=== PATIENT | male | born 1935 | race Caucasian/White ===

== ENCOUNTER → 2017-08-17 | Outpatient (CLI) | payer MEDICARE | LOC: SLP 20:37 | PROVIDERS: ATTEND Internal Medicine Cardiovascular Disease | DX: G47.10 Hypersomnia, unspecified (principal) | CPT/HCPCS: 95810 ==

== ENCOUNTER → 2017-09-08 | Outpatient (CLI) | payer MEDICARE | END | disposition home or self-care (01) | LOC: SLP 10:00 | PROVIDERS: ATTEND Internal Medicine Cardiovascular Disease | DX: G47.33 Obstructive sleep apnea (adult) (pediatric) (principal); G47.00 Insomnia, unspecified | CPT/HCPCS: 95811 ==

== ENCOUNTER 2018-06-18 12:46 | Emergency (ER) | payer MEDICARE ==
[2018-06-18] MEDS ORDERED: TETANUS/DIPHTHERIA TOXOID [ADULT] 0.5 ML VIAL IM ONE (13:47)
[2018-06-18 13:48] LABS: BASOPHILS % (AUTO) 0.8 % (0.0-5.0); EOSINOPHILS % (AUTO) 2.1 % (0.0-8.0); HEMATOCRIT 37.6 % (42-54); LYMPHOCYTES % (AUTO) 22.9 % (21.0-51.0); MEAN CORPUSCULAR HEMOGLOBIN 28.3 pg (27.0-33.0); MEAN CORPUSCULAR HGB CONC 33.2 g/dL (32.0-36.0); MEAN CORPUSCULAR VOLUME 85.2 fL (79-99); MONOCYTES % (AUTO) 7.3 % (3.0-13.0); NEUTROPHILS % (AUTO) 66.9 % (40.0-77.0); PLATELET COUNT (AUTO) 304 K/uL (130-400); RED BLOOD CELL COUNT(AUTO) 4.41 MIL/uL (4.50-6.20); RED CELL DISTRIBUTION WIDTH 12.9 % (11.0-15.5); WHITE BLOOD COUNT (AUTO) 7.3 K/uL (4.8-10.8)
[2018-06-18 13:58] LABS: POTASSIUM 3.9 mmol/L (3.5-5.1)
[2018-06-18 14:01] LABS: INR 0.99 (0.85-1.15); PARTIAL THROMBOPLASTIN TIME 27.5 SEC (26.3-35.5); PROTHROMBIN TIME 10.4 SEC (9.6-11.6)
[2018-06-18 14:04] LABS: ALBUMIN 3.2 g/dL (3.5-5.0); BILIRUBIN,TOTAL 0.8 mg/dL (0.2-1.0); TOTAL PROTEIN, SERUM 6.9 g/dL (6.0-8.3)
== END 2018-06-18 15:37 | disposition home or self-care (01) ==
LOC: EDH 12:46
DX: S05.12XA Contusion of eyeball and orbital tissues, left eye, initial encounter (principal); S40.012A Contusion of left shoulder, initial encounter; S60.512A Abrasion of left hand, initial encounter; I10 Essential (primary) hypertension; E11.9 Type 2 diabetes mellitus without complications; E78.5 Hyperlipidemia, unspecified; Z95.1 Presence of aortocoronary bypass graft; Z72.0 Tobacco use; Z88.1 Allergy status to other antibiotic agents; Z88.8 Allergy status to other drugs, medicaments and biological substances; W18.39XA Other fall on same level, initial encounter; Y93.01 Activity, walking, marching and hiking; Y92.89 Other specified places as the place of occurrence of the external cause; Y99.8 Other external cause status
CPT/HCPCS: 36415; 70450; 70480; 71045; 72125; 73030; 73130; 80053; 85025; 85610; 85730; 90471; 90714

== ENCOUNTER 2019-03-17 08:40 | Emergency (ER) | payer MEDICARE ==
[2019-03-17] MEDS ORDERED: IOHEXOL-350 75 ML VIAL IV ONE (08:55)
[2019-03-17 09:00] LABS: BASOPHILS % (AUTO) 1.1 % (0.0-5.0); EOSINOPHILS % (AUTO) 1.9 % (0.0-8.0); HEMATOCRIT 41.8 % (42-54); LYMPHOCYTES % (AUTO) 35.5 % (21.0-51.0); MEAN CORPUSCULAR HEMOGLOBIN 28.5 pg (27.0-33.0); MEAN CORPUSCULAR HGB CONC 33.4 g/dL (32.0-36.0); MEAN CORPUSCULAR VOLUME 85.3 fL (79-99); MONOCYTES % (AUTO) 7.7 % (3.0-13.0); NEUTROPHILS % (AUTO) 53.8 % (40.0-77.0); NUCLEATED RED BLOOD CELLS 0.1 % (0.0-0.19); PLATELET COUNT (AUTO) 443 K/uL (130-400); RED CELL DISTRIBUTION WIDTH 12.8 % (11.0-15.5); WHITE BLOOD COUNT (AUTO) 8.6 K/uL (4.8-10.8)
[2019-03-17 09:09] LABS: CREATININE 1.4 mg/dL (0.5-1.5); POTASSIUM 4.4 mmol/L (3.5-5.1)
[2019-03-17 09:14] LABS: ALBUMIN 3.7 g/dL (3.5-5.0); BILIRUBIN,TOTAL 0.8 mg/dL (0.2-1.0); INR 1.04 (0.85-1.15); PARTIAL THROMBOPLASTIN TIME 32.6 SEC (26.3-35.5); PROTHROMBIN TIME 10.9 SEC (9.6-11.6); TOTAL PROTEIN, SERUM 7.7 g/dL (6.0-8.3)
[2019-03-17 10:10] LABS: APPEARANCE,URINE Clear (CLEAR); BILIRUBIN,URINE Negative (NEGATIVE); COLOR,URINE Yellow (YELLOW); GLUCOSE, URINE (UA) Negative (NEGATIVE); KETONES,URINE Negative (NEGATIVE); LEUKOCYTE ESTERASE ,URINE Negative (NEGATIVE); NITRATE,URINE Negative (NEGATIVE); OCCULT BLOOD,URINE Negative (NEGATIVE); PH,URINE 5.5 (5.0-8.0); PROTEIN,URINE Negative (NEGATIVE); UROBILINOGEN,URINE 0.2 mg/dL (0.2-1.0)
[2019-03-17] MEDS ORDERED: TRAMADOL HCL 50 MG TABLET ONE (10:26)
[2019-03-17] MEDS ORDERED: CYCLOBENZAPRINE HCL 10 MG TABLET ONE (10:26)
== END 2019-03-17 13:09 | disposition home or self-care (01) ==
LOC: EDH 08:40
DX: M54.2 Cervicalgia (principal); E11.9 Type 2 diabetes mellitus without complications; I10 Essential (primary) hypertension; I48.91 Unspecified atrial fibrillation; E78.5 Hyperlipidemia, unspecified; Z87.891 Personal history of nicotine dependence; Z88.1 Allergy status to other antibiotic agents; V49.49XA Driver injured in collision with other motor vehicles in traffic accident, initial encounter; Y93.89 Activity, other specified; Y92.89 Other specified places as the place of occurrence of the external cause; Y99.8 Other external cause status
CPT/HCPCS: 36415; 70450; 71045; 72125; 72131; 74177; 80053; 81003; 82150; 82550; 83690; 84484; 85025; 85610; 85730; 93005; 99285; Q9967

== ENCOUNTER → 2019-05-30 | Outpatient (CLI) | payer MEDICARE ==
[~2019-05-30] VITALS: Ht 190.5 cm; Wt 90.7 kg
[~2019-05-30] MED LIST: REGADENOSON 0.4 MG/5 ML PF SYG IVP SCH
== END | disposition home or self-care (01) ==
LOC: SHCH 08:06
PROVIDERS: ATTEND Internal Medicine Cardiovascular Disease
DX: R06.09 Other forms of dyspnea (principal); I47.2 Ventricular tachycardia
CPT/HCPCS: 78452; 93017; 96374; A9500 ×2; J2785

== ENCOUNTER 2020-05-23 05:47 | Day surgery (SDC) | payer MEDICARE ==
[2020-05-21 08:59] LABS: BASOPHILS % (AUTO) 1.2 % (0.0-5.0); EOSINOPHILS % (AUTO) 2.4 % (0.0-8.0); HEMATOCRIT 44.6 % (42-54); LYMPHOCYTES % (AUTO) 20.8 % (21.0-51.0); MEAN CORPUSCULAR HEMOGLOBIN 27.6 pg (27.0-33.0); MEAN CORPUSCULAR HGB CONC 32.1 g/dL (32.0-36.0); MEAN CORPUSCULAR VOLUME 86.1 fL (79-99); MONOCYTES % (AUTO) 6.3 % (3.0-13.0); NEUTROPHILS % (AUTO) 69.2 % (40.0-77.0); PLATELET COUNT (AUTO) 374 K/uL (130-400); RED BLOOD CELL COUNT(AUTO) 5.18 MIL/uL (4.50-6.20); RED CELL DISTRIBUTION WIDTH 12.2 % (11.0-15.5); WHITE BLOOD COUNT (AUTO) 7.8 K/uL (4.8-10.8)
[2020-05-21 09:15] LABS: CREATININE 1.5 mg/dL (0.5-1.5); POTASSIUM 4.7 mmol/L (3.5-5.1)
[2020-05-21 09:16] LABS: INR 0.98 (0.85-1.15); PARTIAL THROMBOPLASTIN TIME 27.6 SEC (26.3-35.5); PROTHROMBIN TIME 10.6 SEC (9.6-11.6)
[2020-05-22 09:37] VITALS: BP 143/77
--- NOTE | 2020-05-22 14:42 | NUR ---
[facility] NOTIFED OF CONSULT
[~2020-05-23] VITALS: Ht 190.5 cm; Wt 87.4 kg
[2020-05-23] VITALS (8 sets, daily range): BP systolic 95–128; BP diastolic 50–68
[~2020-05-23 05:47] MED LIST changes: +ATOR40TA69 PO; +CYAN500T65 PO; +DUTA0.5C18 PO; +FERR-82 PO; +LISI10TA7 PO; +METO200T49 PO; -REGADENOSON 0.4 MG/5 ML PF SYG IVP SCH; +RIVA20TA PO
[2020-05-23] MEDS ORDERED: SODIUM CHLORIDE 0.9% 1000ML 1,000 ML IV ONE (05:59)
[2020-05-23] MEDS ORDERED: BUPIVACAINE/PF 0.25% 30ML VIAL IJ ONE (07:19)
[2020-05-23] MEDS ORDERED: CEFAZOLIN SODIUM 1 GM VIAL ONE (07:19)
[2020-05-23] MEDS ORDERED: SODIUM BICARB 50MEQ 50ML VIAL 50 ML ONE (07:19)
[2020-05-23] MEDS ORDERED: MIDAZOLAM HCL 1 MG/ML 2ML VIAL ONE (07:19)
[2020-05-23] MEDS ORDERED: FENTANYL CITRATE PF 50 MCG/1 ML 2ML VIAL ONE (07:20)
[2020-05-23] MEDS ORDERED: LIDOCAINE HCL 1% MDV 50ML VIAL ONE (07:20)
== END 2020-05-23 10:35 | disposition home or self-care (01) ==
LOC: DAH 05:47
PROVIDERS: ATTEND Internal Medicine Cardiovascular Disease
DX: Z45.010 Encounter for checking and testing of cardiac pacemaker pulse generator [battery] (principal); I47.1 Supraventricular tachycardia; E11.9 Type 2 diabetes mellitus without complications; E78.5 Hyperlipidemia, unspecified; G47.33 Obstructive sleep apnea (adult) (pediatric); Z88.1 Allergy status to other antibiotic agents; Z88.8 Allergy status to other drugs, medicaments and biological substances; Z79.01 Long term (current) use of anticoagulants; Z79.899 Other long term (current) drug therapy
CPT/HCPCS: 33228; 36415; 80048; 85025; 85610; 85730; 93005; A4216; A4221; A4222; A4223 ×3; A4606; A4663; C1785; J0690; J2250; J3010; J3490 ×3; J7030; 99156; 99157

== ENCOUNTER 2021-05-09 19:09 | Emergency (ER) | payer MEDICARE ==
[~2021-05-09] VITALS: Ht 193 cm; Wt 88.5 kg
[~2021-05-09 19:09] MED LIST changes: -CYAN500T65 PO; +CYAN500T9 PO; -DUTA0.5C18 PO; +DUTA0.5C37 PO; +LISI10TA24 PO; -LISI10TA7 PO
[2021-05-09] MEDS ORDERED: DIPH,PERTUSS(ACELL),TET VAC/PF 0.5 ML VIAL IM ONE (19:30)
[2021-05-09] MEDS ORDERED: ACETAMINOPHEN 500 MG TABLET PO ONE (19:30)
[2021-05-09] MEDS ORDERED: LIDOCAINE 1%-EPI 1:100,000 20 ML VIAL IJ SCH (19:30)
[2021-05-09] MEDS ORDERED: TETANUS/DIPHTHERIA TOXOID [ADULT] 0.5 ML VIAL IM ONE (19:46)
[2021-05-09] MEDS ORDERED: LIDOCAINE HCL 1% 10 ML VIAL ONE (19:48)
[2021-05-09 21:21] VITALS: BP 141/54
[2021-05-09] MEDS ORDERED: ACET1TAB25 PO (21:21)
== END 2021-05-09 21:42 | disposition home or self-care (01) ==
LOC: EDH 19:09
DX: S01.81XA Laceration without foreign body of other part of head, initial encounter (principal); M54.2 Cervicalgia; I11.9 Hypertensive heart disease without heart failure; Z88.1 Allergy status to other antibiotic agents; Z79.01 Long term (current) use of anticoagulants; Z95.0 Presence of cardiac pacemaker; Z79.899 Other long term (current) drug therapy; X58.XXXA Exposure to other specified factors, initial encounter; Y93.89 Activity, other specified; Y92.89 Other specified places as the place of occurrence of the external cause; Y99.8 Other external cause status
CPT/HCPCS: 12013; 70450; 70486; 72125; 90471; 90715; 99285; J3490; 90714

== ENCOUNTER → 2022-10-20 | Outpatient (CLI) | payer MEDICARE ==
[~2022-10-20] MED LIST changes: +ACET-2079 PO
[2022-10-20 12:20] LABS: BASOPHILS % (AUTO) 1.3 % (0.0-5.0); EOSINOPHILS % (AUTO) 7.3 % (0.0-8.0); HEMATOCRIT 41.9 % (42-54); LYMPHOCYTES % (AUTO) 20.3 % (21.0-51.0); MEAN CORPUSCULAR HEMOGLOBIN 27.3 pg (27.0-33.0); MEAN CORPUSCULAR HGB CONC 31.7 g/dL (32.0-36.0); MONOCYTES % (AUTO) 8.8 % (3.0-13.0); PLATELET COUNT (AUTO) 358 K/uL (130-400); RED BLOOD CELL COUNT(AUTO) 4.87 MIL/uL (4.50-6.20); RED CELL DISTRIBUTION WIDTH 12.5 % (11.0-15.5); WHITE BLOOD COUNT (AUTO) 7.9 K/uL (4.8-10.8)
[2022-10-20 12:27] LABS: ALBUMIN 3.4 g/dL (3.5-5.0); CREATININE 1.4 mg/dL (0.5-1.5); POTASSIUM 4.4 mmol/L (3.5-5.1); TOTAL PROTEIN, SERUM 7.4 g/dL (6.0-8.3)
== END | disposition home or self-care (01) ==
LOC: LAB 10:02
PROVIDERS: ATTEND Internal Medicine Cardiovascular Disease
DX: I10 Essential (primary) hypertension (principal)
CPT/HCPCS: 36415; 80053; 80061; 85025

== ENCOUNTER → 2023-04-20 | Outpatient (CLI) | payer MEDICARE ==
[2023-04-20 12:15] LABS: BASOPHILS # (AUTO) 0.09 K/uL (0.00-0.20); BASOPHILS % (AUTO) 1.2 % (0.0-5.0); EOSINOPHILS # (AUTO) 0.24 K/uL (0.00-0.70); EOSINOPHILS % (AUTO) 3.1 % (0.0-8.0); HEMATOCRIT 41.9 % (42-54); IMMATURE GRANULOCYTE ABSOLUTE 0.02 K/uL (0-1); MEAN CORPUSCULAR HEMOGLOBIN 27.7 pg (27.0-33.0); MEAN CORPUSCULAR HGB CONC 31.7 g/dL (32.0-36.0); MEAN CORPUSCULAR VOLUME 87.3 fL (79-99); MONOCYTES # (AUTO) 0.5 K/uL (0.1-1.0); NEUTROPHILS # (AUTO) 4.8 K/uL (1.8-7.7); NEUTROPHILS % (AUTO) 62.4 % (40.0-77.0); PLATELET COUNT (AUTO) 384 K/uL (130-400); RED CELL DISTRIBUTION WIDTH 12.6 % (11.0-15.5); WHITE BLOOD COUNT (AUTO) 7.6 K/uL (4.8-10.8)
[2023-04-20 12:45] LABS: ALBUMIN 3.6 g/dL (3.5-5.0); BILIRUBIN,TOTAL 0.6 mg/dL (0.2-1.0); CREATININE 1.2 mg/dL (0.5-1.5); POTASSIUM 4.6 mmol/L (3.5-5.1); TOTAL PROTEIN, SERUM 7.6 g/dL (6.0-8.3)
== END | disposition home or self-care (01) ==
LOC: LAB 09:44
PROVIDERS: ATTEND Internal Medicine Cardiovascular Disease
DX: I10 Essential (primary) hypertension (principal); E78.2 Mixed hyperlipidemia
CPT/HCPCS: 36415; 80053; 80061; 85025

== ENCOUNTER → 2023-05-29 | Outpatient (CLI) | payer MEDICARE ==
[2023-05-29 11:33] LABS: BASOPHILS # (AUTO) 0.06 K/uL (0.00-0.20); BASOPHILS % (AUTO) 0.8 % (0.0-5.0); EOSINOPHILS # (AUTO) 0.16 K/uL (0.00-0.70); EOSINOPHILS % (AUTO) 2.1 % (0.0-8.0); HEMATOCRIT 40.8 % (42-54); IMMATURE GRANULOCYTE ABSOLUTE 0.03 K/uL (0-1); LYMPHOCYTES # (AUTO) 1.7 K/uL (1.0-4.8); MEAN CORPUSCULAR HEMOGLOBIN 28.5 pg (27.0-33.0); MEAN CORPUSCULAR HGB CONC 32.1 g/dL (32.0-36.0); MEAN CORPUSCULAR VOLUME 88.7 fL (79-99); MONOCYTES # (AUTO) 0.6 K/uL (0.1-1.0); MONOCYTES % (AUTO) 7.7 % (3.0-13.0); NEUTROPHILS # (AUTO) 5.2 K/uL (1.8-7.7); PLATELET COUNT (AUTO) 338 K/uL (130-400); RED CELL DISTRIBUTION WIDTH 12.7 % (11.0-15.5); WHITE BLOOD COUNT (AUTO) 7.7 K/uL (4.8-10.8)
[2023-05-29 11:48] LABS: ALBUMIN 3.4 g/dL (3.5-5.0); BILIRUBIN,TOTAL 0.6 mg/dL (0.2-1.0); CREATININE 1.2 mg/dL (0.5-1.5); POTASSIUM 4.7 mmol/L (3.5-5.1); TOTAL PROTEIN, SERUM 7.3 g/dL (6.0-8.3)
== END | disposition home or self-care (01) ==
LOC: LAB 09:42
PROVIDERS: ATTEND Internal Medicine Cardiovascular Disease
DX: I10 Essential (primary) hypertension (principal); E78.2 Mixed hyperlipidemia
CPT/HCPCS: 36415; 80053; 80061; 85025

== ENCOUNTER → 2024-02-12 | Outpatient (CLI) | payer MEDICARE ==
[~2024-02-12] MED LIST changes: +METO200T37 PO; -METO200T49 PO
[2024-02-12 15:17] LABS: BASOPHILS # (AUTO) 0.08 K/uL (0.00-0.20); BASOPHILS % (AUTO) 1.1 % (0.0-5.0); EOSINOPHILS # (AUTO) 0.35 K/uL (0.00-0.70); EOSINOPHILS % (AUTO) 4.7 % (0.0-8.0); HEMATOCRIT 42.4 % (42-54); IMMATURE GRANULOCYTE ABSOLUTE 0.02 K/uL (0-1); LYMPHOCYTES # (AUTO) 1.7 K/uL (1.0-4.8); LYMPHOCYTES % (AUTO) 23.5 % (21.0-51.0); MEAN CORPUSCULAR HEMOGLOBIN 28.4 pg (27.0-33.0); MEAN CORPUSCULAR HGB CONC 33.3 g/dL (32.0-36.0); MEAN CORPUSCULAR VOLUME 85.5 fL (79-99); MONOCYTES # (AUTO) 0.7 K/uL (0.1-1.0); MONOCYTES % (AUTO) 9.1 % (3.0-13.0); NEUTROPHILS # (AUTO) 4.5 K/uL (1.8-7.7); NEUTROPHILS % (AUTO) 61.3 % (40.0-77.0); PLATELET COUNT (AUTO) 338 K/uL (130-400); RED BLOOD CELL COUNT(AUTO) 4.96 MIL/uL (4.50-6.20); RED CELL DISTRIBUTION WIDTH 12.7 % (11.0-15.5); WHITE BLOOD COUNT (AUTO) 7.4 K/uL (4.8-10.8)
[2024-02-12 15:34] LABS: ALBUMIN 3.5 g/dL (3.5-5.0); BILIRUBIN,TOTAL 0.7 mg/dL (0.2-1.0); CREATININE 1.3 mg/dL (0.5-1.3); POTASSIUM 4.6 mmol/L (3.5-5.1); TOTAL PROTEIN, SERUM 7.4 g/dL (6.0-8.3)
== END | disposition home or self-care (01) ==
LOC: LAB 11:39
PROVIDERS: ATTEND Internal Medicine Cardiovascular Disease
DX: D68.69 Other thrombophilia (principal); I48.0 Paroxysmal atrial fibrillation; Z79.01 Long term (current) use of anticoagulants; Z79.899 Other long term (current) drug therapy
CPT/HCPCS: 36415; 80053; 80061; 85025

== ENCOUNTER → 2024-06-09 | Outpatient (CLI) | payer MEDICARE ==
[2024-06-09 12:28] LABS: BASOPHILS # (AUTO) 0.09 K/uL (0.00-0.20); BASOPHILS % (AUTO) 0.5 % (0.0-5.0); EOSINOPHILS # (AUTO) 0.24 K/uL (0.00-0.70); EOSINOPHILS % (AUTO) 1.4 % (0.0-8.0); HEMATOCRIT 46.1 % (42-54); IMMATURE GRANULOCYTE ABSOLUTE 0.05 K/uL (0-1); LYMPHOCYTES # (AUTO) 1.5 K/uL (1.0-4.8); LYMPHOCYTES % (AUTO) 9.1 % (21.0-51.0); MEAN CORPUSCULAR HEMOGLOBIN 28.4 pg (27.0-33.0); MEAN CORPUSCULAR HGB CONC 31.9 g/dL (32.0-36.0); MEAN CORPUSCULAR VOLUME 89.2 fL (79-99); MONOCYTES % (AUTO) 5.8 % (3.0-13.0); NEUTROPHILS # (AUTO) 13.9 K/uL (1.8-7.7); NEUTROPHILS % (AUTO) 82.9 % (40.0-77.0); PLATELET COUNT (AUTO) 361 K/uL (130-400); RED BLOOD CELL COUNT(AUTO) 5.17 MIL/uL (4.50-6.20); RED CELL DISTRIBUTION WIDTH 12.9 % (11.0-15.5); WHITE BLOOD COUNT (AUTO) 16.7 K/uL (4.8-10.8)
[2024-06-09 12:42] LABS: ALBUMIN 3.9 g/dL (3.5-5.0); BILIRUBIN,TOTAL 0.9 mg/dL (0.2-1.0); CREATININE 1.3 mg/dL (0.5-1.3); POTASSIUM 4.9 mmol/L (3.5-5.1); TOTAL PROTEIN, SERUM 8.3 g/dL (6.0-8.3)
== END | disposition home or self-care (01) ==
LOC: LAB 06-08 11:54
PROVIDERS: ATTEND Internal Medicine Cardiovascular Disease
DX: I48.0 Paroxysmal atrial fibrillation (principal); D68.69 Other thrombophilia; Z79.01 Long term (current) use of anticoagulants; Z79.899 Other long term (current) drug therapy
CPT/HCPCS: 36415; 80053; 80061; 85025

== ENCOUNTER 2024-07-25 16:55 | Inpatient (IN) | payer MEDICARE ==
[~2024-07-25] VITALS: Ht 193 cm; Wt 84.4 kg
[2024-07-25] MEDS: 0.9%NACL 1000ML 1,000 ML IV ONE (17:25)
[2024-07-25] MEDS: acetaMINOPHEN 325 MG TAB PO ONE (17:30)
[2024-07-25 17:36] LABS: BASOPHILS # (AUTO) 0.03 K/uL (0.00-0.20); BASOPHILS % (AUTO) 0.4 % (0.0-5.0); EOSINOPHILS # (AUTO) 0.03 K/uL (0.00-0.70); EOSINOPHILS % (AUTO) 0.4 % (0.0-8.0); HEMATOCRIT 42.5 % (42-54); IMMATURE GRANULOCYTE ABSOLUTE 0.03 K/uL (0-1); LYMPHOCYTES # (AUTO) 1.3 K/uL (1.0-4.8); MEAN CORPUSCULAR HEMOGLOBIN 28.3 pg (27.0-33.0); MEAN CORPUSCULAR HGB CONC 33.6 g/dL (32.0-36.0); MONOCYTES # (AUTO) 0.6 K/uL (0.1-1.0); NEUTROPHILS # (AUTO) 5.2 K/uL (1.8-7.7); NEUTROPHILS % (AUTO) 72.8 % (40.0-77.0); PLATELET COUNT (AUTO) 421 K/uL (130-400); RED BLOOD CELL COUNT(AUTO) 5.06 MIL/uL (4.50-6.20); RED CELL DISTRIBUTION WIDTH 12.4 % (11.0-15.5); WHITE BLOOD COUNT (AUTO) 7.1 K/uL (4.8-10.8)
[2024-07-25 17:43] LABS: INR 0.98 (0.85-1.15)
[2024-07-25 17:44] LABS: PARTIAL THROMBOPLASTIN TIME 30.9 SEC (26.3-35.5)
--- NOTE | 2024-07-25 17:45 | HMCIMG ---
PORTABLE CHEST RADIOGRAPH INDICATION: COUGH COMPARISON: 03/17/2019 FINDINGS: engine monitor leads overlie the field of view. Left sided dual chamber pacer and continuous leads remain in customary position. Heart size is normal. Mild calcific plaque is present along the aortic arch persaud. The pulmonary vascularity and elda appear normal. No abnormal pulmonary parenchymal opacity or consolidation identified. No significant pleural effusion noted. No pneumothorax detected. IMPRESSION: No radiographic evidence for any acute cardiopulmonary process.
[2024-07-25 17:54] LABS: CREATININE 1.4 mg/dL (0.5-1.3)
[2024-07-25 18:03] LABS: INFLUENZA TYPE A Negative For Type A (NEGATIVE); INFLUENZA TYPE B Negative For Type B (NEGATIVE)
[2024-07-25 18:04] LABS: APPEARANCE,URINE CLEAR (CLEAR); BILIRUBIN,URINE NEGATIVE (NEGATIVE); COLOR,URINE LIGHT-YELLOW (YELLOW); GLUCOSE, URINE (UA) NEGATIVE (NEGATIVE); KETONES,URINE NEGATIVE (NEGATIVE); LEUKOCYTE ESTERASE ,URINE NEGATIVE Leu/uL (NEGATIVE); NITRATE,URINE NEGATIVE (NEGATIVE); OCCULT BLOOD,URINE NEGATIVE (NEGATIVE); PROTEIN,URINE NEGATIVE (NEGATIVE); UROBILINOGEN,URINE 0.2 mg/dL (0.2-1.0)
[2024-07-25 18:05] LABS: ADD UA MICROSCOPIC NO
[2024-07-25 18:06] LABS: POTASSIUM 3.1 mmol/L (3.5-5.1)
[2024-07-25 18:06] LABS: COVID19 (SARS ANTIGEN RAPID) POSITIVE FOR SARS AG (NEGATIVE)
--- NOTE | 2024-07-25 18:13 | ERN ---
ED Note History of Present Illness Stated Complaint: WEAKNESS Chief Complaint: Weakness Time Seen by MD: 17:03 Time Seen by Midlevel: 17:03 Dictation: The patient is an 89-year-old male with a history of hypertension, pacemaker placement presents to the emergency department with complaints of weakness, shortness of breath, cough. Patient was sent here by Dr. Amaury Benson for a possible admission due to failed outpatient treatment. Per patient he was diagnosed with COVID two weeks ago and had just finished taking his treatment today but companies feeling weak and short of breath. Reports some chest pain with cough. Patient has poor historian. Hard of hearing Allergies: Coded Allergies: Erythromycin Base (Unverified Allergy, 11/05/12) Levofloxacin (Unverified Allergy, 11/05/12) Home Meds Active Scripts Acetaminophen with Codeine (Acetaminophen-Cod #3 Tablet) 1 Each Tablet, 1 EACH PO TID for pain, #15 TAB 0 Refills Prov:NICK DICK MD 05/09/21 Reported Medications Atorvastatin Calcium (LIPITOR) 40 Mg Tablet, 40 MG PO HS, TAB 05/22/20 Metoprolol Succinate (Metoprolol Succinate) 200 Mg Tab.er.24h, 20 MG PO DAILY, TAB 05/22/20 Lisinopril (Lisinopril) 10 Mg Tablet, 10 MG PO BID, TAB 05/22/20 Dutasteride (Dutasteride) 0.5 Mg Capsule, 0.5 MG PO DAILY, CAP 05/22/20 Ferrous Sulfate (Iron) 325 Mg Tablet, 325 MG PO HS, TAB 05/22/20 Cyanocobalamin (Vitamin B-12) 500 Mcg Tab, 500 MCG PO HS, TAB 05/22/20 Rivaroxaban (Xarelto) 20 Mg Tablet, 20 MG PO HS, TAB 05/22/20 Past Medical History Past Medical History: Heart Disease, Hypertension Surgical History: Other RN Note Reviewed/Agreed w/PFSH: Yes Review of System Dictation Constitutional: Negative for fever,chills, and weight loss Eyes: Negative for injury, pain,redness, and discharge ENT: Negative for injury,pain or swelling Cardiovascular: Negative for palpitations, and edema positive for chest pain Respiratory: Negative for and wheezing, positive for shortness of breath, cough Abdomen/GI: Negative for abdominal pain, nausea, vomiting, diarrhea, and constipation Back: Negative for injury and pain : Negative for injury, bleeding and discharge MS/Extremity: Negative for injury and deformity Skin: Negative for rash, and discoloration Neuro: Negative for headache, numbness, tingling, and seizure positive for weakness Psych: Negative for suicide ideation, homicidal ideation, and hallucinations Initial Vital Sign VS Vital Signs Date Time Temp Pulse Resp B/P (MAP) Pulse Ox O2 Delivery O2 Flow Rate FiO2 07/25/24 17:01 99.0 126 20 154/84 99 Room Air 0 07/25/24 17:30 21 Physical Exam Dictation Vital Signs reviewed General Appearance: Alert, oriented x 3, no acute distress, well developed, nourished. Head and Face: non-traumatic. Eyes: PERRL, pink conjunctivas, eyelid no trauma, anterior chamber with arcus senilis. Ears: Pinnas intact and no signs of trauma or erythema ear canals clear and no discharge TM no erythema Nose: No discharge, no bleeding. Oropharynx: Mouth normal, tongue pink. pharynx clear,no erythema, tonsils no exudates, no abscesses noted, mucous membrane moist Neck: Supple, non-tender, no thyromegaly, no masses, no JVD, no bruits Breast:Deferred Chest:No tenderness, no crepitus, no paradoxical movement, no retractions Lungs:Clear, well-ventilated, symmetric, no rales, no wheezing, no rhonchi, no stridor, good breath sounds bilaterally Heart: Regular rate, regular rhythm, no murmur, no gallops Vascular: no peripheral edema, Abdomen: Soft, positive bowel sounds, nondistended, no guarding, nontender, no rebound, no masses no hepatomegaly, no splenomegaly, no Pal's sign, no hernias. Rectal: Deferred Genital: Deferred Neurological: Normal speech, motor function intact, sensory function intact Musculoskeletal: Neck nontender, full range of motion, back nontender, full range of motion, Extremities: nontender, full range of motion Skin: Color pink, dry, no turgor, no rash, no lacerations, no abrasions, no contusions. Lymphatic: Deferred Results (Laboratory/Radiology) Laboratory/Radiology Laboratory Tests Test 07/25/24 17:23 07/25/24 17:26 07/25/24 17:56 1/27/25 19:56 White Blood Count 7.1 K/uL (4.8-10.8) Red Blood Count 5.06 MIL/uL (4.50-6.20) Hemoglobin 14.3 g/dL (14.0-18.0) Hematocrit 42.5 % (42-54) Mean Corpuscular Volume 84.0 fL (79-99) Mean Corpuscular Hemoglobin 28.3 pg (27.0-33.0) Mean Corpuscular Hemoglobin Concent 33.6 g/dL (32.0-36.0) Red Cell Distribution Width 12.4 % (11.0-15.5) Platelet Count 421 K/uL (130-400) H Mean Platelet Volume 8.6 fL (7.5-10.5) Immature Granulocyte % (Auto) 0.4 % (0-1) Neutrophils (%) (Auto) 72.8 % (40.0-77.0) Lymphocytes (%) (Auto) 18.0 % (21.0-51.0) L Monocytes (%) (Auto) 8.0 % (3.0-13.0) Eosinophils (%) (Auto) 0.4 % (0.0-8.0) Basophils (%) (Auto) 0.4 % (0.0-5.0) Neutrophils # (Auto) 5.2 K/uL (1.8-7.7) Lymphocytes # (Auto) 1.3 K/uL (1.0-4.8) Monocytes # (Auto) 0.6 K/uL (0.1-1.0) Eosinophils # (Auto) 0.03 K/uL (0.00-0.70) Basophils # (Auto) 0.03 K/uL (0.00-0.20) Absolute Immature Granulocyte (auto 0.03 K/uL (0-1) Nucleated Red Blood Cells 0.0 % (0.0-0.19) Prothrombin Time 11.0 SEC (9.6-11.6) Prothromb Time International Ratio 0.98 (0.85-1.15) Activated Partial Thromboplast Time 30.9 SEC (26.3-35.5) Sodium Level 131 mmol/L (136-145) L Potassium Level 3.1 mmol/L (3.5-5.1) L Chloride Level 95 mmol/L (101-111) L Carbon Dioxide Level 29 mmol/L (21-32) Blood Urea Nitrogen 12 mg/dL (7-18) Creatinine 1.4 mg/dL (0.5-1.3) H Glomerular Filtration Rate Calc 48 mL/min (>90) Random Glucose 107 mg/dL (70-105) H Lactic Acid Level 1.9 mmol/L (0.8-2.5) Total Calcium 9.1 mg/dL (8.5-10.1) Troponin I High Sensitivity 13 ng/L (4-75) 16 ng/L (4-75) B-Type Natriuretic Peptide 251 pg/mL (0-100) H Influenza Type A Antigen Negative For Type A Influenza Type B Antigen Negative For Type B SARS-CoV-2 Antigen (Rapid) POSITIVE FOR SARS AG Urine Color LIGHT-YELLOW (YELLOW) Urine Appearance CLEAR (CLEAR) Urine pH 6.0 (5.0-8.0) Urine Specific [place] 1.006 (1.001-1.031) Urine Protein NEGATIVE mg/dL (NEGATIVE) Urine Glucose (UA) NEGATIVE mg/dL (NEGATIVE) Urine Ketones NEGATIVE mg/dL (NEGATIVE) Urine Occult Blood NEGATIVE (NEGATIVE) Urine Nitrate NEGATIVE (NEGATIVE) Urine Bilirubin NEGATIVE mg/dL (NEGATIVE) Urine Urobilinogen 0.2 mg/dL (0.2-1.0) Urine Leukocyte Esterase NEGATIVE Cori/uL Test 07/26/24 07:08 07/26/24 12:21 White Blood Count 6.2 K/uL (4.8-10.8) Red Blood Count 4.46 MIL/uL (4.50-6.20) L Hemoglobin 12.6 g/dL (14.0-18.0) L Hematocrit 37.4 % (42-54) L Mean Corpuscular Volume 83.9 fL (79-99) Mean Corpuscular Hemoglobin 28.3 pg (27.0-33.0) Mean Corpuscular Hemoglobin Concent 33.7 g/dL (32.0-36.0) Red Cell Distribution Width 12.6 % (11.0-15.5) Platelet Count 362 K/uL (130-400) Mean Platelet Volume 8.6 fL (7.5-10.5) Immature Granulocyte % (Auto) 0.2 % (0-1) Neutrophils (%) (Auto) 91.0 % (40.0-77.0) H Lymphocytes (%) (Auto) 7.5 % (21.0-51.0) L Monocytes (%) (Auto) 1.3 % (3.0-13.0) L Eosinophils (%) (Auto) 0.0 % (0.0-8.0) Basophils (%) (Auto) 0.0 % (0.0-5.0) Neutrophils # (Auto) 5.7 K/uL (1.8-7.7) Lymphocytes # (Auto) 0.5 K/uL (1.0-4.8) L Monocytes # (Auto) 0.1 K/uL (0.1-1.0) Eosinophils # (Auto) 0.00 K/uL (0.00-0.70) Basophils # (Auto) 0.00 K/uL (0.00-0.20) Absolute Immature Granulocyte (auto 0.01 K/uL (0-1) Nucleated Red Blood Cells 0.0 % (0.0-0.19) White Cell Morphology Comment See comments D-Dimer Quantitative (PE/DVT) 491 ng/mL (0-500) Sodium Level 140 mmol/L (136-145) Potassium Level 3.9 mmol/L (3.5-5.1) Chloride Level 105 mmol/L (101-111) Carbon Dioxide Level 25 mmol/L (21-32) Blood Urea Nitrogen 13 mg/dL (7-18) Creatinine 1.2 mg/dL (0.5-1.3) Glomerular Filtration Rate Calc 58 mL/min (>90) Random Glucose 175 mg/dL (70-105) #H Total Calcium 8.6 mg/dL (8.5-10.1) Magnesium Level 1.60 mg/dL (1.80-2.40) L Total Bilirubin 0.6 mg/dL (0.2-1.0) Aspartate Amino Transf (AST/SGOT) 22 U/L (10-37) Alanine Aminotransferase (ALT/SGPT) 22 U/L (12-78) Alkaline Phosphatase 54 U/L (50-136) Troponin I High Sensitivity 13 ng/L (4-75) Total Protein 6.3 g/dL (6.0-8.3) Albumin 2.9 g/dL (3.5-5.0) L Blood Gas Specimen Type Arterial Arterial Blood pH 7.511 (7.350-7.450) Arterial Blood Partial Pressure CO2 24 mmHg (35-48) L Arterial Blood Partial Pressure O2 81.3 mmHg (83.0-108.0) L Arterial Blood HCO3 18.5 mmol/L (21.0-28.0) L Arterial Blood Oxygen Saturation 97.1 % (94.0-98.0) Arterial Blood Base Excess -2.4 mmol/L (-2.0-3.0) L Blood Gas Temperature 37.0 CELSIUS (35.5-37.0) Blood Gas Vent Mode RA (ROOM AIR) FiO2 21.0 % Blood Gas Specimen Comment RR,LILLIAN REASON: COUGH ORDERING PHYSICIAN: ALDO SANCHEZ MD PROCEDURE: CXR1VW - CHEST 1VW PORTABLE CHEST RADIOGRAPH INDICATION: COUGH COMPARISON: 03/17/2019 FINDINGS: cafeteria monitor leads overlie the field of view. Left sided dual chamber pacer and continuous leads remain in customary position. Heart size is normal. Mild calcific plaque is present along the aortic arch persaud. The pulmonary vascularity and elda appear normal. No abnormal pulmonary parenchymal opacity or consolidation identified. No significant pleural effusion noted. No pneumothorax detected. IMPRESSION: No radiographic evidence for any acute cardiopulmonary process. Labs Reviewed?: Yes EKG: (+) rhythm (Sinus tachycardia) EKG Comment: Date:07/25/2024 Time:1702 Ventricular rate: 102 LA interval:197 QRS duration:125 QT/QTc:386 EKG interpretation: Sinus tachycardia Reviewed by ED Attending no STEMI ED Course ED Course Orders Procedure Category Date Status Time 12 Lead Ekg Tracing- EKG 07/25/24 Complete Technical 17:05 Chest 1vw RAD 07/25/24 Resulted 17:05 Cbc With Differential LAB 07/25/24 Complete 17:05 Basic Metabolic Panel LAB 07/25/24 Complete 17:05 Urinalysis Profile LAB 07/25/24 Complete 17:05 Troponin I High LAB 07/25/24 Complete Sensitivity 17:05 Lactic Acid LAB 07/25/24 Complete 17:05 Blood Cult LAZ 07/25/24 In Process 17:05 Covid19 (Sars Antigen LAB 07/25/24 Complete Rapid) 17:17 Influenza Type A & B, LAB 07/25/24 Complete Rapid 17:17 0.9%Nacl 1000ml (Ns PHA 07/25/24 Complete 1000ml) 17:30 Pt And Ptt LAB 07/25/24 Complete 17:17 Acetaminophen 325 Tab PHA 07/25/24 Complete (Tylenol 325mg Tab 17:30 B-Type Natriuretic LAB 07/25/24 Complete Peptide 18:14 Potassium Bicarb/Cit PHA 07/25/24 Complete Ac 25meq (K-Lyte Ta 18:30 Aspirin 325mg Tab PHA 07/25/24 Complete (Aspirin 325mg Tab) 18:30 Dexamethasone 4mg/Ml PHA 07/25/24 Complete 1ml Vial (Dexametha 18:30 Ipratropium/Albuterol PHA 07/25/24 Complete Neb (Duoneb) 18:30 Admit Orders ADM 07/25/24 Transmitted 18:48 Edm Admit Bridge Order ADM 07/25/24 Transmitted 18:48 Vital Signs(Adult CPOE 07/25/24 Transmitted Hospitalist) 19:43 Daily Weights CPOE 07/25/24 Transmitted 19:43 I&O Q Shift CPOE 07/25/24 Transmitted 19:43 Acetaminophen 325 Tab PHA 07/25/24 In Process (Tylenol 325mg Tab 20:00 Acetaminophen 325 Tab PHA 07/25/24 In Process (Tylenol 325mg Tab 20:00 Ondansetron 4mg Inj PHA 07/25/24 In Process (Zofran 4mg Inj) 20:00 Nitroglycerin 0.4mg PHA 07/25/24 In Process Sl Tab (Nitrostat) 20:00 Guaifenesin-Dm PHA 07/25/24 In Process 200/20mg 10ml 20:00 Ipratropium/Albuterol PHA 07/25/24 In Process Neb (Duoneb) 22:00 Pulse Ox(Continuous) RT 07/25/24 Transmitted 19:43 Nurse To Enter Home CPOE 07/25/24 Transmitted Medication 19:43 Condition: CPOE 07/25/24 Transmitted 19:43 Telemetry Monitoring CPOE 07/25/24 Transmitted 19:43 Activity: Br W/Brp CPOE 07/25/24 Transmitted With Assist 19:43 Heart Healthy Diet DIET 07/26/24 Transmitted Breakfast Apply Scds CPOE 07/25/24 Transmitted 19:43 Famotidine 20mg Tab PHA 07/26/24 In Process (Pepcid 20mg Tab) 09:00 0.9%Nacl 1000ml (Ns PHA 07/25/24 In Process 1000ml) 20:00 Cbc With Differential LAB 07/26/24 Complete 04:00 Comprehensive LAB 07/26/24 Complete Metabolic Panel 04:00 Magnesium LAB 07/26/24 Complete 04:00 Dexamethasone 4mg/Ml PHA 07/25/24 Complete 1ml Vial (Dexametha 20:00 Aspirin 81mg Ec Tab PHA 07/26/24 In Process (Aspirin 81mg Ec Tab 09:00 Troponin I High LAB 07/25/24 Complete Sensitivity 19:43 Troponin I High LAB 07/26/24 Complete Sensitivity 03:43 Magnesium 2gm Premix PHA 07/25/24 In Process 50ml (Magnesium 2gm 20:00 Initiate Hypokalemia CPOE 07/25/24 Transmitted Po Half 19:50 Potassium Chloride PHA 07/25/24 In Process 10meq/100ml ([place] 20:00 Potassium Chl 10% PHA 07/25/24 In Process Elixir 20meq (Kcl 10% 20:00 Potassium Chloride PHA 07/25/24 In Process 20meq Er (K-Dur/Klor- 20:00 Notify Physician If CPOE 07/25/24 Transmitted There Is 19:50 Notify Md On The Next CPOE 07/25/24 Transmitted 19:50 Notify Md On The CPOE 07/25/24 Transmitted Next(Cont.) 19:50 Atorvastatin 40mg PHA 07/26/24 In Process (Lipitor 40mg) 21:00 Cyanocobalamin PHA 07/26/24 In Process (Vitamin B-12) 21:00 Home Medication (Home PHA 07/26/24 In Process Medication) 09:00 Ferrous Sulfate PHA 07/26/24 In Process (Ferrous Sulfate) 21:00 Hydralazine 20mg Inj PHA 07/25/24 In Process (Apresoline 20mg In 21:30 D-Dimer LAB 07/26/24 Complete 04:00 Admit Orders ADM 07/25/24 Transmitted 21:35 Arterial Blood Gas RT 07/26/24 Transmitted 11:26 Arterial Blood Gas LAB 07/26/24 Complete 12:21 Lisinopril 10mg PHA 07/26/24 In Process (Prinivil 10mg) 21:00 Rivaroxaban (Xarelto) PHA 07/26/24 In Process 21:00 Echo 2-D Complete ECHO 07/26/24 Taken 14:36 Metoprolol Succinate PHA 07/27/24 In Process (Toprol Xl) 09:00 Metoprolol Succinate PHA 07/26/24 Complete (Toprol Xl) 15:30 Telemetry Monitoring CPOE 07/26/24 Transmitted 17:00 Arterial Blood Gas RT 07/27/24 Verified 04:00 Cbc With Differential LAB 07/27/24 Verified 04:00 Comprehensive LAB 07/27/24 Verified Metabolic Panel 04:00 Current Medications Medications (Trade) Dose Ordered Sig/Chase Route PRN Reason Start Time Stop Time Status Last Admin Dose Admin Acetaminophen (TYLenol 325MG TAB) 650 mg ONCE ONCE PO 07/25/24 17:30 07/25/24 17:31 DC 07/25/24 17:30 Albuterol (DUOneb) 1 UDVIAL ONCE ONCE IH 07/25/24 18:30 07/25/24 18:33 DC 07/25/24 19:02 Aspirin (Aspirin 325mg Tab) 325 mg ONCE ONCE PO 07/25/24 18:30 07/25/24 18:33 DC 07/25/24 18:37 Dexamethasone Sodium Phosphate (dexaMETHasone 4MG/ML 1ML VIAL) 4 mg ONCE ONCE IV 07/25/24 18:30 07/25/24 18:33 DC 07/25/24 18:37 Potassium Bicarbonate (K-Lyte Tablet Eff 25 Meq Tablet.eff) 25 meq ONCE ONCE PO 07/25/24 18:30 07/25/24 18:33 DC 07/25/24 18:37 Sodium Chloride 1,000 ml @ 125 mls/hr ONCE ONCE IV 07/25/24 17:30 07/26/24 01:29 DC 07/25/24 17:25 Vital Signs Date Time Temp Pulse Resp B/P (MAP) Pulse Ox O2 Delivery O2 Flow Rate FiO2 07/26/24 15:25 112 14 132/56 97 Room Air* 0 21 07/26/24 14:45 120 20 07/26/24 13:04 53 16 132/56 98 Room Air* 0 07/26/24 11:53 103 16 162/70 97 Room Air* 0 21 07/26/24 10:03 120 20 07/26/24 07:54 98.1 98 16 129/67 100 Room Air* 0 21 07/26/24 07:09 88 20 N/A Room Air 21 07/26/24 07:08 88 20 07/26/24 06:21 98.1 60 18 138/64 99 Room Air* 0 07/26/24 04:26 98.4 58 18 148/60 98 Room Air* 0 07/26/24 01:57 60 18 07/26/24 01:57 60 20 N/A Room Air 21 07/25/24 21:43 52 20 N/A Room Air 21 07/25/24 21:43 52 20 07/25/24 21:17 98.2 62 20 151/68 99 Room Air* 0 07/25/24 19:02 50 20 07/25/24 17:30 97.9 69 18 172/100 100 Room Air* 0 07/25/24 17:01 99.0 126 20 154/84 99 Room Air 0 HEART Score Response (Comments) Value History: Low suspicion (0) 0 Age: > 65yrs (+2) 2 Risk Factors: 1-2 risk factors (+1) 1 Initial Troponin: Normal limit (0) 0 Total 3 Medical Decision Making MDM MDM: The patient is an 89-year-old male with a history of hypertension, pacemaker placement presents to the emergency department with complaints of weakness, shortness of breath, cough. Patient was sent here by Dr. Amaury Benson for a possible admission due to failed outpatient treatment. Per patient he was diagnosed with hCOVID two weeks ago and had just finished taking his treatment today but companies feeling weak and short of breath. Reports some chest pain with cough. Patient has poor historian. Hard of hearing CBC showed no leukocytosis, no anemia, chemistry showed hyponatremia, hypokalemia, hypochloremia, GFR of 48, negative troponin, urinalysis unremarkable, serology positive for COVID-19 infection. Patient will be admitted for further management. Differential diagnosis: Pneumonia, ACS, pneumothorax, electrolyte imbalance, dehydration Comorbidities: Hypertension, permanent pacemaker, complete heart block Tests considered and not ordered secondary to shared decision making include: none Previous outside records reviewed: none Risk of complication and/or morbidity or mortality of patient management: The patient meets criteria for admission. Need for emergency major/minor surgery: No There are no social concerns with this patient. I independently interpreted the tests I ordered (labs, urinalysis, etc.). I discussed the case with the hospitalist for admission. Namrata who accepts admission. I discussed the case with the following specialists: none. Historian: pateint. I independently interpreted imaging studies and EKGs that I ordered (US, CT, XR, EKG, etc.). External chart review: none. Medical management and examination interpretation discussions were had by me wit h other qualified healthcare professionals as indicated for the patient's care. DX & DISP Disposition: Inpatient Decision to Admit Date: Jul 25, 2024 Decision to Admit Time: 18:54 Departure Impression: Primary Impression: COVID-19 virus infection Additional Impressions: Weakness, Dehydration, Hyponatremia, Hypochloremia, Chest pain, Hypokalemia Condition: Stable Referrals: AMAURY BENSON MD (PCP) I have reviewed the case, and I agree with, Diagnosis and Plan I performed the substantive portion of the visit. I have reviewed and personally made and approve the management plan that is documented in the notes by myself or the MIN[facility]. I acknowledge full responsibility for the patient's man agement plan. MARIANA AIKEN Jul 25, 2024 18:13 ALDO SANCHEZ MD Jul 26, 2024 18:46
[2024-07-25] MEDS: dexaMETHasone SOD PHOSPHATE 4 MG/ML 1ML VIAL IV ONE (18:37)
[2024-07-25] MEDS: ASPIRIN 325MG TAB PO ONE (18:37)
[2024-07-25] MEDS: PoTASSium BIcarbonate/CIT AC 25 MEQ TABLET.EFF PO ONE (18:37)
--- NOTE | 2024-07-25 18:49 | HP ---
[facility] HISTORY AND PHYSICAL Date of Service: Jul 25, 2024 Time of Service: 18:49 PCP Kelley Rebolledo MD HISTORY OF PRESENT ILLNESS: This is an 89-year-old male with highly impaired hearing with past medical history of hypertension, cardiac pacemaker, diabetes and BPH presents to the ED for complaints of cough, shortness of breath and general weakness.Patient reports having symptoms for the past 2 weeks and was diagnosed with Covid and completed his treatment but no improvement and patient states he has chest pain which is triggered with persistent cough.Patient states he spits some thigh phlegm occasionally.Patient was sent to ER by his PCP due to failed outpatient treatment and for possible admission. Seen and examined patient in the ED ,awake ,alert and coherent.Patient continue to complain of chest pain which is reproducible in nature and describe pain as soreness located around his entire chest wall area. Patient denies fever, chills, sore throat, nausea, vomiting, diarrhea, abdominal pain and palpitation. Recent vital signs temperature 97.9 heart rate 50, respiration 20 blood pressure 172/100 saturation 100% on room air. Labs : Platelet count 421 otherwise CBC result is unremarkable . Sodium 131, potassium 3.1, chloride 95, creatinine 1.4 GFR 48, glucose 107 troponin 13 to 16 BNP 251. ECG result revealed sinus rhythm heart rate 96 prolonged CA interval left bundle branch block. Influenza a and B negative SARs COVID positive. Chest x-ray result is unremarkable. While in the ER patient received Tylenol 65 0 mg p.o., potassium replacement 25 mEq p.o., aspirin 325 mg p.o., dexamethasone 4 mg IV and albuterol neb treatment and patient was started on NS at 125 mL/hour we will admit patient for further medical management. REVIEW OF SYSTEMS CONSTITUTIONAL: Denies fevers, chills, or night sweats. No unintentional weight loss reported. NEUROLOGICAL: Denies headache, amaurosis fugax, motor weakness, sensory deficit, vertigo/spinning sensation, gait abnormalities, or tremors. ENT: No hearing loss, otalgia, otorrhea, rhinitis, rhinorrhea, hoarseness, or sore throat. CARDIOVASCULAR: Denies any exertional angina, dyspnea on exertion, orthopnea, paroxysmal nocturnal dyspnea, palpitations, life-threatening arrhythmias, claudication. PULMONARY: Complain of shortness of breaths and productive cough and pleuritic chest pain Denies hemoptysis, SLEEP: Denies morning headaches, daytime somnolence or napping. Denies difficulty falling asleep, staying asleep, waking from sleep. Denies knowledge of snoring. GASTROINTESTINAL: Denies any type of dysphagia to either liquids or solids. D enies nausea, vomiting, pyrosis, early satiety, abdominal pain, diarrhea, constipation, or changes in stool consistency or caliber. Denies coffee-ground emesis, hematemesis, hematochezia, or melanotic stools. GENITOURINARY: Denies frequency, urgency, nocturia, hematuria or incontinence (Storage/Irritative symptoms.) Low urinary stream, straining to void, urinary intermittency or hesitancy, splitting of the voiding stream, terminal dribbling. ENDOCRINOLOGIC: Denies polyuria, polydipsia, polyphagia or heat/cold intolerances. HEMATOLOGIC: Denies thrombophilia/previous clots, or coagulopathy/bleeding disorders. ONCOLOGIC: Denies personal history of malignancy. DERMATOLOGIC: Denies rashes or pruritus. PSYCHIATRIC: Denies any suicidal or homicidal ideation. Denies hallucinations. PAST MEDICAL HISTORY: [ hypertension, cardiac pacemaker, diabetes and BPH ] PAST SURGICAL HISTORY: [ Prostate surgery, retinal surgery, bilateral inguinal hernia repair and check pacemaker placement ] PAST SOCIAL HISTORY: [ Patient denies alcohol tobacco and recreational drug use ] FAMILY HISTORY: [Hypertension, stroke and cancer ] Coded Allergies: Erythromycin Base (Unverified Allergy, 11/05/12) Levofloxacin (Unverified Allergy, 11/05/12) PHYSICAL EXAM GENERAL APPEARANCE: The patient is awake, alert, and oriented, in no acute cardiopulmonary distress. NEUROLOGICAL: Cranial nerves II-XII grossly intact. Motor is 5/5 in bilateral upper and lower extremities proximal to distal. No sensory deficits. HEENT: Face is symmetric. Pupils are equal and reactive. Extraocular movements are intact. NECK: Supple. No JVD. No thyromegaly. No submental, submandibular, pre- /postauricular, occipital or supraclavicular lymphadenopathy. CHEST: Normal chest expansion. No Telemetry. LUNGS: Absence of any rales, rhonchi or any wheezing. CARDIOVASCULAR: Reproducible chest pain on palpation Regular. S1 and S2 normal. No appreciable rubs, murmurs or gallops. ABDOMEN: Soft, nontender, and nondistended. There is no rebound, voluntary guarding, or rigidity. : Deferred. No Acosta. EXTREMITIES: Non-edematous and not cyanotic. No clubbing. Good capillary refill. SKIN: No skin breakdown. Vital Sign (Last 24 Hours) 07/25/24 17:30 Temp 97.9 Pulse 69 Resp 18 B/P (MAP) 172/100 Pulse Ox 100 O2 Delivery Room Air* O2 Flow Rate 0 FiO2 21 LABS: Laboratory: Test 07/25/24 17:56 07/25/24 17:26 07/25/24 17:23 Range/Units Urine Color LIGHT-YELLOW YELLOW Urine Appearance CLEAR CLEAR Urine pH 6.0 5.0-8.0 Urine Specific [place] 1.006 1.001-1.031 Urine Protein NEGATIVE NEGATIVE mg/dL Urine Glucose (UA) NEGATIVE NEGATIVE mg/dL Urine Ketones NEGATIVE NEGATIVE mg/dL Urine Occult Blood NEGATIVE NEGATIVE Urine Nitrate NEGATIVE NEGATIVE Urine Bilirubin NEGATIVE NEGATIVE mg/dL Urine Urobilinogen 0.2 0.2-1.0 mg/dL Urine Leukocyte Esterase NEGATIVE NEGATIVE Cori/uL Influenza Type A Antigen Negative For Type A NEGATIVE Influenza Type B Antigen Negative For Type B NEGATIVE SARS-CoV-2 Antigen (Rapid) POSITIVE FOR SARS AG *A NEGATIVE White Blood Count 7.1 4.8-10.8 K/uL Red Blood Count 5.06 4.50-6.20 MIL/uL Hemoglobin 14.3 14.0-18.0 g/dL Hematocrit 42.5 42-54 % Mean Corpuscular Volume 84.0 79-99 fL Mean Corpuscular Hemoglobin 28.3 27.0-33.0 pg Mean Corpuscular Hemoglobin Concent 33.6 32.0-36.0 g/dL Red Cell Distribution Width 12.4 11.0-15.5 % Platelet Count 421 H 130-400 K/uL Mean Platelet Volume 8.6 7.5-10.5 fL Immature Granulocyte % (Auto) 0.4 0-1 % Neutrophils (%) (Auto) 72.8 40.0-77.0 % Lymphocytes (%) (Auto) 18.0 L 21.0-51.0 % Monocytes (%) (Auto) 8.0 3.0-13.0 % Eosinophils (%) (Auto) 0.4 0.0-8.0 % Basophils (%) (Auto) 0.4 0.0-5.0 % Neutrophils # (Auto) 5.2 1.8-7.7 K/uL Lymphocytes # (Auto) 1.3 1.0-4.8 K/uL Monocytes # (Auto) 0.6 0.1-1.0 K/uL Eosinophils # (Auto) 0.03 0.00-0.70 K/uL Basophils # (Auto) 0.03 0.00-0.20 K/uL Absolute Immature Granulocyte (auto 0.03 0-1 K/uL Nucleated Red Blood Cells 0.0 0.0-0.19 % Prothrombin Time 11.0 9.6-11.6 SEC Prothromb Time International Ratio 0.98 0.85-1.15 Activated Partial Thromboplast Time 30.9 26.3-35.5 SEC Sodium Level 131 L 136-145 mmol/L Potassium Level 3.1 L 3.5-5.1 mmol/L Chloride Level 95 L 101-111 mmol/L Carbon Dioxide Level 29 21-32 mmol/L Blood Urea Nitrogen 12 7-18 mg/dL Creatinine 1.4 H 0.5-1.3 mg/dL Glomerular Filtration Rate Calc 48 >90 mL/min Random Glucose 107 H 70-105 mg/dL Lactic Acid Level 1.9 0.8-2.5 mmol/L Total Calcium 9.1 8.5-10.1 mg/dL Troponin I High Sensitivity 13 4-75 ng/L DIAGNOSTICS / RADIOLOGY: [ ] ASSESSMENT: COVID virus infection POA Failed outpatient treatment POA Dehydration POA Hypertension POA Cardiac pacemaker status POA Chest pain Hypokalemia POA Thrombocytosis POA Elevated BNP POA Acute on chronic renal insufficiency POA PLAN: We will admit patient in medical telemetry We will start on heart healthy diet We will start NS @ 75 ml / hr x1 bag and re evaluate We will start aspirin 81 mg p.o. daily We will continue dexamethasone 6 mg IV daily We will start on Famotidine 20 mg p.o. daily for GI prophylaxis We will replace electrolytes as needed per protocol May use oxygen supplementation to keep saturation above 92% We will do neb treatment q.4 hours We will add prn medication for fever,pain,cough, nausea and vomiting Home meds reconciled We will seek pulmonology consultation We will request labs in am Further orders to follow depending on above results Case discussed with attending physician and came up with above treatment and plan of care. ADVANCED CARE PLANNING 1. Which of the following were discussed? Hospice Care - No Therapeutic options - Yes Advance Directives - No Other discussions - 2. Discussed with who? Patient 3. Voluntary nature of this service was explained to the patient? Yes 4. Amount of time spent - __20 5. Reviewed by Physician? (if this service was performed by NPP) Yes Patient seen and examined by me. Agree with note by MANAGER MINING SEE ADDITIONAL ORDERS PER CHART DISCUSSED WITH NURSING STAFF MUKUL KULKARNI BOTTOM BRUSHER Jul 25, 2024 18:49
[2024-07-25 19:02] VITALS: PULSE 50; RESP 20
[2024-07-25] MEDS: IpraTROPium/alBUTERol SULFATE 3 ML SOLUTION IH ONE (19:02)
[2024-07-25] MEDS: 0.9%NACL 1000ML 1,000 ML IV SCH (19:59)
[2024-07-25] MEDS: dexaMETHasone SOD PHOSPHATE 4 MG/ML 1ML VIAL IV SCH (19:59)
[2024-07-25] MEDS ORDERED: PoTASSium chloRIDE 10MEQ/100ML 100 ML IV PRN (20:00)
[2024-07-25] MEDS ORDERED: PoTASSium chl 10% ELIXIR 20MEQ 20 MEQ/15 ML UDCUP PO PRN (20:00)
[2024-07-25] MEDS ORDERED: ondanSETRON 4MG INJ IV PRN (20:00)
[2024-07-25] MEDS ORDERED: NITROGLYCERIN 0.4 MG SL TAB SL PRN (20:00)
--- NOTE | 2024-07-25 21:23 | NUR ---
HOME MEDS NOT AVAIL AT BEDSIDE, INSTRUCTED PT'S NOK TO BRING THEM OVER NANDO FOR RECON
[2024-07-25] MEDS ORDERED: hydrALAZine 20MG/ML VIAL IV PRN (21:30)
[2024-07-25 21:43] VITALS: PULSE 52; RESP 20; O2SAT 97
[2024-07-25] MEDS: IpraTROPium/alBUTERol SULFATE 3 ML SOLUTION IH SCH (21:43)
[2024-07-26] VITALS (10 sets, daily range): BP systolic 117; BP diastolic 74; PULSE 60–120; RESP 16–20; TEMP 98.1; O2SAT 97–99
--- NOTE | 2024-07-26 06:46 | EKG ---
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 Requested By: ALDO SANCHEZ Order Number: [id number] Reading MD: Obie Covington Measurements Intervals [place] Rate: 96 P: 36 GA: 225 QRS: -71 QRSD: 126 T: 93 QT: 380 QTc: 481 Interpretive Statements Sinus rhythm Prolonged GA interval Left bundle branch block Compared to ECG 05/21/2020 08:47:19 First degree AV block now present Left bundle-branch block now present Ventricular-paced complex(es) or rhythm no longer present AV dual-paced complex(es) or rhythm no longer present Electronically Signed On 07-27-2024 19:58:44 WARDSPERSON by Obie Covington Please click the below link to view image of tracing.
[2024-07-26 07:26] LABS: HEMATOCRIT 37.4 % (42-54); IMMATURE GRANULOCYTE ABSOLUTE 0.01 K/uL (0-1); LYMPHOCYTES # (AUTO) 0.5 K/uL (1.0-4.8); LYMPHOCYTES % (AUTO) 7.5 % (21.0-51.0); MEAN CORPUSCULAR HEMOGLOBIN 28.3 pg (27.0-33.0); MEAN CORPUSCULAR HGB CONC 33.7 g/dL (32.0-36.0); MEAN CORPUSCULAR VOLUME 83.9 fL (79-99); MONOCYTES # (AUTO) 0.1 K/uL (0.1-1.0); MONOCYTES % (AUTO) 1.3 % (3.0-13.0); NEUTROPHILS # (AUTO) 5.7 K/uL (1.8-7.7); PLATELET COUNT (AUTO) 362 K/uL (130-400); RED BLOOD CELL COUNT(AUTO) 4.46 MIL/uL (4.50-6.20); RED CELL DISTRIBUTION WIDTH 12.6 % (11.0-15.5); WHITE BLOOD COUNT (AUTO) 6.2 K/uL (4.8-10.8)
[2024-07-26 07:43] LABS: ALBUMIN 2.9 g/dL (3.5-5.0); BILIRUBIN,TOTAL 0.6 mg/dL (0.2-1.0); CREATININE 1.2 mg/dL (0.5-1.3); MAGNESIUM 1.6 mg/dL (1.80-2.40); POTASSIUM 3.9 mmol/L (3.5-5.1); TOTAL PROTEIN, SERUM 6.3 g/dL (6.0-8.3)
[2024-07-26] MEDS: DUTASTERIDE 0.5 MG PO SCH (09:00)
[2024-07-26] MEDS: FAMOTIDINE 20MG TAB PO SCH (09:29)
[2024-07-26] MEDS: ASPIRIN 81 MG EC TAB PO SCH (09:29)
--- NOTE | 2024-07-26 09:46 | NUR ---
PULMONOLOGY CONSULT: PATIENT REPORT GIVEN TO WARREN LYLES NP
[2024-07-26 12:23] LABS: ABG BASE EXCESS -2.4 mmol/L (-2.0-3.0); ABG HCO3 18.5 mmol/L (21.0-28.0); ABG OXYGEN SATURATION 97.1 % (94.0-98.0); ABG PCO2 24 mmHg (35-48); ABG PH 7.511 (7.350-7.450); PO2, ARTERIAL BG 81.3 mmHg (83.0-108.0); VENT MODE, BG RA (ROOM AIR)
[2024-07-26] MEDS: acetaMINOPHEN 325 MG TAB PO PRN (13:04)
[2024-07-26] MEDS: MAGNESIUM 2GM PREMIX 50ML 50 ML IV PRN (15:00)
[2024-07-26] MEDS: metOPROLol sucCINATE 25 MG TAB.SR.24H PO ONE (15:38)
--- NOTE | 2024-07-26 17:01 | PN ---
[facility] PROGRESS NOTE Date of Service: Jul 26, 2024 Time of Service: 17:01 SUBJECTIVE: 07/26/24 The patient was seen this morning at the bedside.Patient currently on room air appears to be tolerating well. Patient denies any chest pain does not report any shortness of breadth at this time. Patient denies any nausea vomiting or abdominal pain. Patient initially stated had some shortness of breadth upon arrival to emergency room. Patient's ABGs were unremarkable does not show any hypoxia. The patient continued to experience tachycardia, for which 12.5 mg of metoprolol was administered. Medication reconciliation will be performed to restart the patient's usual treatment regimen. An echocardiogram was ordered due to an elevated BNP of 251, a pulmonology consultation has been requested. The echocardiogram results are pending, and further management will follow recommendations from pulmonology. REVIEW OF SYSTEMS CONSTITUTIONAL: Denies fevers, chills, or night sweats. No unintentional weight loss reported. NEUROLOGICAL: Denies headache, amaurosis fugax, motor weakness, sensory deficit, vertigo/spinning sensation, gait abnormalities, or tremors. ENT: No hearing loss, otalgia, otorrhea, rhinitis, rhinorrhea, hoarseness, or sore throat. CARDIOVASCULAR: Denies any exertional angina, dyspnea on exertion, orthopnea, paroxysmal nocturnal dyspnea, palpitations, life-threatening arrhythmias, claudication. PULMONARY: Complain of shortness of breaths and productive cough and pleuritic chest pain Denies hemoptysis, SLEEP: Denies morning headaches, daytime somnolence or napping. Denies difficulty falling asleep, staying asleep, waking from sleep. Denies knowledge of snoring. GASTROINTESTINAL: Denies any type of dysphagia to either liquids or solids. Denies nausea, vomiting, pyrosis, early satiety, abdominal pain, diarrhea, cons tipation, or changes in stool consistency or caliber. Denies coffee-ground emesis, hematemesis, hematochezia, or melanotic stools. GENITOURINARY: Denies frequency, urgency, nocturia, hematuria or incontinence (Storage/Irritative symptoms.) Low urinary stream, straining to void, urinary intermittency or hesitancy, splitting of the voiding stream, terminal dribbling. ENDOCRINOLOGIC: Denies polyuria, polydipsia, polyphagia or heat/cold intolerances. HEMATOLOGIC: Denies thrombophilia/previous clots, or coagulopathy/bleeding disorders. ONCOLOGIC: Denies personal history of malignancy. DERMATOLOGIC: Denies rashes or pruritus. PSYCHIATRIC: Denies any suicidal or homicidal ideation. Denies hallucinations. PHYSICAL EXAM GENERAL APPEARANCE: The patient is awake, alert, and oriented, in no acute cardiopulmonary distress. NEUROLOGICAL: Cranial nerves II-XII grossly intact. Motor is 5/5 in bilateral upper and lower extremities proximal to distal. No sensory deficits. HEENT: Face is symmetric. Pupils are equal and reactive. Extraocular movements are intact. NECK: Supple. No JVD. No thyromegaly. No submental, submandibular, pre- /postauricular, occipital or supraclavicular lymphadenopathy. CHEST: Normal chest expansion. No Telemetry. LUNGS: Absence of any rales, rhonchi or any wheezing. CARDIOVASCULAR: Reproducible chest pain on palpation Regular. S1 and S2 normal. No appreciable rubs, murmurs or gallops. ABDOMEN: Soft, nontender, and nondistended. There is no rebound, voluntary guarding, or rigidity. : Deferred. No Acosta. EXTREMITIES: Non-edematous and not cyanotic. No clubbing. Good capillary refill. SKIN: No skin breakdown. Vital Signs (last 8hr) Date Time Temp Pulse Resp B/P (MAP) Pulse Ox O2 Delivery O2 Flow Rate FiO2 07/26/24 15:25 112 14 132/56 97 Room Air* 0 07/26/24 14:45 120 20 07/26/24 13:04 53 16 132/56 98 Room Air* 0 07/26/24 11:53 103 16 162/70 97 Room Air* 0 07/26/24 10:03 120 20 LABS: Laboratory: Test 07/26/24 12:21 07/26/24 07:08 07/25/24 17:56 07/25/24 17:26 Range/Units Blood Gas Specimen Type Arterial Arterial Blood pH 7.511 H 7.350-7.450 Arterial Blood Partial Pressure CO2 24 L 35-48 mmHg Arterial Blood Partial Pressure O2 81.3 L 83.0-108.0 mmHg Arterial Blood HCO3 18.5 L 21.0-28.0 mmol/L Arterial Blood Oxygen Saturation 97.1 94.0-98.0 % Arterial Blood Base Excess -2.4 L -2.0-3.0 mmol/L Blood Gas Temperature 37.0 35.5-37.0 CELSIUS Blood Gas Vent Mode RA ROOM AIR FiO2 21.0 % Blood Gas Specimen Comment RR,LILLIAN White Blood Count 6.2 4.8-10.8 K/uL Red Blood Count 4.46 L 4.50-6.20 MIL/uL Hemoglobin 12.6 L 14.0-18.0 g/dL Hematocrit 37.4 L 42-54 % Mean Corpuscular Volume 83.9 79-99 fL Mean Corpuscular Hemoglobin 28.3 27.0-33.0 pg Mean Corpuscular Hemoglobin Concent 33.7 32.0-36.0 g/dL Red Cell Distribution Width 12.6 11.0-15.5 % Platelet Count 362 130-400 K/uL Mean Platelet Volume 8.6 7.5-10.5 fL Immature Granulocyte % (Auto) 0.2 0-1 % Neutrophils (%) (Auto) 91.0 H 40.0-77.0 % Lymphocytes (%) (Auto) 7.5 L 21.0-51.0 % Monocytes (%) (Auto) 1.3 L 3.0-13.0 % Eosinophils (%) (Auto) 0.0 0.0-8.0 % Basophils (%) (Auto) 0.0 0.0-5.0 % Neutrophils # (Auto) 5.7 1.8-7.7 K/uL Lymphocytes # (Auto) 0.5 L 1.0-4.8 K/uL Monocytes # (Auto) 0.1 0.1-1.0 K/uL Eosinophils # (Auto) 0.00 0.00-0.70 K/uL Basophils # (Auto) 0.00 0.00-0.20 K/uL Absolute Immature Granulocyte (auto 0.01 0-1 K/uL Nucleated Red Blood Cells 0.0 0.0-0.19 % White Cell Morphology Comment See comments D-Dimer Quantitative (PE/DVT) 491 0-500 ng/mL Sodium Level 140 136-145 mmol/L Potassium Level 3.9 3.5-5.1 mmol/L Chloride Level 105 101-111 mmol/L Carbon Dioxide Level 25 21-32 mmol/L Blood Urea Nitrogen 13 7-18 mg/dL Creatinine 1.2 0.5-1.3 mg/dL Glomerular Filtration Rate Calc 58 >90 mL/min Random Glucose 175 #H 70-105 mg/dL Total Calcium 8.6 8.5-10.1 mg/dL Magnesium Level 1.60 L 1.80-2.40 mg/dL Total Bilirubin 0.6 0.2-1.0 mg/dL Aspartate Amino Transf (AST/SGOT) 22 10-37 U/L Alanine Aminotransferase (ALT/SGPT) 22 12-78 U/L Alkaline Phosphatase 54 50-136 U/L Troponin I High Sensitivity 13 4-75 ng/L Total Protein 6.3 6.0-8.3 g/dL Albumin 2.9 L 3.5-5.0 g/dL Urine Color LIGHT-YELLOW YELLOW Urine Appearance CLEAR CLEAR Urine pH 6.0 5.0-8.0 Urine Specific [place] 1.006 1.001-1.031 Urine Protein NEGATIVE NEGATIVE mg/dL Urine Glucose (UA) NEGATIVE NEGATIVE mg/dL Urine Ketones NEGATIVE NEGATIVE mg/dL Urine Occult Blood NEGATIVE NEGATIVE Urine Nitrate NEGATIVE NEGATIVE Urine Bilirubin NEGATIVE NEGATIVE mg/dL Urine Urobilinogen 0.2 0.2-1.0 mg/dL Urine Leukocyte Esterase NEGATIVE NEGATIVE Cori/uL Influenza Type A Antigen Negative For Type A NEGATIVE Influenza Type B Antigen Negative For Type B NEGATIVE SARS-CoV-2 Antigen (Rapid) POSITIVE FOR SARS AG *A NEGATIVE Test 07/25/24 17:23 Range/Units Prothrombin Time 11.0 9.6-11.6 SEC Prothromb Time International Ratio 0.98 0.85-1.15 Activated Partial Thromboplast Time 30.9 26.3-35.5 SEC Lactic Acid Level 1.9 0.8-2.5 mmol/L B-Type Natriuretic Peptide 251 H 0-100 pg/mL Current Medications Medications (Trade) Dose Ordered Sig/Chase Route PRN Reason Start Time Stop Time Status Last Admin Dose Admin Acetaminophen (TYLenol 325MG TAB) 650 mg Q4H PRN PO MILD PAIN (1-3) 07/25/24 20:00 08/24/24 19:59 Acetaminophen (TYLenol 325MG TAB) 650 mg Q6H PRN PO TEMPERATURE GREATER THAN 101.5 07/25/24 20:00 08/24/24 19:59 07/26/24 13:04 650 MG Albuterol (DUOneb) 1 udvial [id number] IH 07/25/24 22:00 08/24/24 21:59 07/26/24 14:40 1 UDVIAL Aspirin (Aspirin 81mg Ec Tab) 81 mg DAILY PO 07/26/24 09:00 08/25/24 08:59 07/26/24 09:29 81 MG Atorvastatin Calcium (LIPItor 40MG) 40 mg HS PO 07/26/24 21:00 08/25/24 20:59 Dexamethasone Sodium Phosphate (dexaMETHasone 4MG/ML 1ML VIAL) 6 mg Q24H IV 07/25/24 20:00 08/24/24 19:59 07/25/24 19:59 6 MG Famotidine (Pepcid 20mg Tab) 20 mg DAILY PO 07/26/24 09:00 08/25/24 08:59 07/26/24 09:29 20 MG Ferrous Sulfate (Ferrous Sulfate) 325 mg HS PO 07/26/24 21:00 08/25/24 20:59 Guaifenesin/ Dextromethorphan (RobiTUSSin DM 200/20MG 10ML) 10 ml Q4H PRN PO COUGH 07/25/24 20:00 08/24/24 19:59 Home Med (Home Medication) DAILY PO 07/26/24 09:00 08/25/24 08:59 Hydralazine HCl (APRESOLine 20MG INJ) 10 mg Q6H PRN IV ADMINISTER FOR SBP > 160 07/25/24 21:30 08/24/24 21:29 Lisinopril (Prinivil 10mg) 10 mg BID PO 07/26/24 21:00 08/25/24 20:59 Magnesium Sulfate 50 ml @ 0 mls/hr PROTOCOL PRN IV OTHER [SEE ORDER COMMENTS] 07/25/24 20:00 08/24/24 19:59 07/26/24 15:00 25 MLS/HR Metoprolol Succinate (TopROL XL) 200 mg DAILY PO 07/27/24 09:00 08/26/24 08:59 Nitroglycerin (Nitrostat) 0.4 mg PROTOCOL PRN SL CHEST PAIN 07/25/24 20:00 08/24/24 19:59 Ondansetron HCl (zoFRAN 4MG INJ) 4 mg Q6H PRN IV NAUSEA/VOMITING 07/25/24 20:00 08/24/24 19:59 Potassium Chloride 100 ml @ 100 mls/hr AD PRN IV POTASSIUM PROTOCOL 07/25/24 20:00 08/24/24 19:59 Potassium Chloride (K-Dur/Klor-Con 20meq) 10 meq AD PRN PO POTASSIUM PROTOCOL 07/25/24 20:00 08/24/24 19:59 Potassium Chloride (KCl 10% Elixir 20meq/15ml) 10 meq AD PRN PO POTASSIUM PROTOCOL 07/25/24 20:00 08/24/24 19:59 Rivaroxaban (Xarelto) 20 mg HS PO 07/26/24 21:00 08/25/24 20:59 Sodium Chloride 1,000 ml @ 75 mls/hr [id number] IV 07/25/24 20:00 08/24/24 19:59 07/26/24 09:29 75 MLS/HR Vitamin B Complex (Vitamin B-12) 500 mcg HS PO 07/26/24 21:00 08/25/24 20:59 DIAGNOSTICS / RADIOLOGY: [ ] ASSESSMENT: COVID virus infection POA Failed outpatient treatment POA Dehydration POA Hypertension POA Cardiac pacemaker status POA Chest pain Hypokalemia POA Thrombocytosis POA Elevated BNP POA Acute on chronic renal insufficiency POA PLAN: patient in medical telemetry Continue on heart healthy diet aspirin 81 mg p.o. daily continue dexamethasone 6 mg IV daily Famotidine 20 mg p.o. daily for GI prophylaxis We will replace electrolytes as needed per protocol May use oxygen supplementation to keep saturation above 92% We will do neb treatment q.4 hours We will add prn medication for fever,pain,cough, nausea and vomiting Home meds reconciled We will seek pulmonology consultation We will request labs in am Further orders to follow depending on above results ATTESTATION BY PHYSICIAN I have seen and examined the patient. I reviewed the documentation, medical decision making, and treatment plan as noted by the resident provider above. I agree with the findings and plan of care. Ronal Mosqueda MD, GERARDO MD Jul 26, 2024 17:01
--- NOTE | 2024-07-26 17:05 | CONS ---
[facility] CONSULTATION NOTE Date Patient Seen: Jul 26, 2024 Time of Visit: 1232 Supervising Physician: Dr. An Reason for Consultation: Shortness of breadth Inpatient Consults: BIS PROBLEM LIST: COVID virus infection POA Failed outpatient treatment POA Dehydration POA Hypertension POA Cardiac pacemaker status POA Chest pain Hypokalemia POA Thrombocytosis POA Elevated BNP POA Acute on chronic renal insufficiency POA HPI: This is an 89-year-old male with highly impaired hearing with past medical history of hypertension, cardiac pacemaker, diabetes and BPH presents to the ED for complaints of cough, shortness of breath and general weakness.Patient reports having symptoms for the past 2 weeks and was diagnosed with Covid and completed his treatment but no improvement and patient states he has chest pain which is triggered with persistent cough.Patient states he spits some thigh phlegm occasionally.Patient was sent to ER by his PCP due to failed outpatient treatment and for possible admission. Seen and examined patient in the ED ,awake ,alert and coherent.Patient continue to complain of chest pain which is reproducible in nature and describe pain as soreness located around his entire chest wall area. Patient denies fever, chills, sore throat, nausea, vomiting, diarrhea, abdominal pain and palpitation. Recent vital signs temperature 97.9 heart rate 50, respiration 20 blood pressure 172/100 saturation 100% on room air. Labs : Platelet count 421 otherwise CBC result is unremarkable . Sodium 131, potassium 3.1, chloride 95, creatinine 1.4 GFR 48, glucose 107 troponin 13 to 16 BNP 251. ECG result revealed sinus rhythm heart rate [address] interval left bundle branch block. Influenza a and B negative SARs COVID positive. Chest x-ray result is unremarkable. While in the ER patient received Tylenol 650 mg p.o., potassium replacement 25 mEq p.o., aspirin 325 mg p.o., dexamethasone 4 mg IV and albuterol neb treatment and patient was started on NS at 125 mL/hour we will admit patient for further medical management. Patient was seen and examined by bedside with no family present. Patient currently on room air appears to be tolerating well. Patient denies any chest pain does not report any shortness of breadth at this time. Patient denies any nausea vomiting or abdominal pain. Patient initially stated had some shortness of breadth upon arrival to emergency room. Patient's ABGs were unremarkable does not show any hypoxia. Pulmonology were consulted for shortness of breadth thank you for allowing us to participate in the care of this patient recommendations listed below. Plan summary Recommendations are to discontinue dexamethasone due to patient's ABG showing no hypoxia Patient remained stable on room air from a pulmonary standpoint patient is cleared for discharge to recover from COVID virus at home At this time pulmonology will sign off feel free to reconsult with any change in condition PAST MEDICAL HX: see above PAST SURGICAL HX: noncontributory SOCIAL HISTORY: No tobacco, ETOH, or illicit drug use Coded Allergies: Erythromycin Base (Unverified Allergy, 11/05/12) Levofloxacin (Unverified Allergy, 11/05/12) REVIEW OF SYSTEMS: 12 point ROS reviewed with patient. Pertinent positives mentioned above. Otherwise negative. PHYSICAL EXAM: GENERAL: alert, weak, awake oriented x 3 HEENT: EOMI, Sclera non icteric, moist mucosa NECK: Supple, no JVD, trachea midline LUNGS: Clear breath sounds bilaterally. No wheezes HEART: Regular rate and rhythm. Normal S1 and S2, without murmurs ABD: Abdomen soft, nontender. Bowel sounds present EXT: No clubbing cyanosis or edema NEURO: Alert and oriented to person, follows commands Vital Signs (last 8hr) Date Time Temp Pulse Resp B/P (MAP) Pulse Ox O2 Delivery O2 Flow Rate FiO2 07/26/24 15:25 112 14 132/56 97 Room Air* 0 21 07/26/24 14:45 120 20 07/26/24 13:04 53 16 132/56 98 Room Air* 0 07/26/24 11:53 103 16 162/70 97 Room Air* 0 07/26/24 10:03 120 20 LABS: Hematology Labs: Test 07/26/24 07:08 Range/Units White Blood Count 6.2 4.8-10.8 K/uL Red Blood Count 4.46 L 4.50-6.20 MIL/uL Hemoglobin 12.6 L 14.0-18.0 g/dL Hematocrit 37.4 L 42-54 % Mean Corpuscular Volume 83.9 79-99 fL Mean Corpuscular Hemoglobin 28.3 27.0-33.0 pg Mean Corpuscular Hemoglobin Concent 33.7 32.0-36.0 g/dL Red Cell Distribution Width 12.6 11.0-15.5 % Platelet Count 362 130-400 K/uL Mean Platelet Volume 8.6 7.5-10.5 fL Immature Granulocyte % (Auto) 0.2 0-1 % Neutrophils (%) (Auto) 91.0 H 40.0-77.0 % Lymphocytes (%) (Auto) 7.5 L 21.0-51.0 % Monocytes (%) (Auto) 1.3 L 3.0-13.0 % Eosinophils (%) (Auto) 0.0 0.0-8.0 % Basophils (%) (Auto) 0.0 0.0-5.0 % Neutrophils # (Auto) 5.7 1.8-7.7 K/uL Lymphocytes # (Auto) 0.5 L 1.0-4.8 K/uL Monocytes # (Auto) 0.1 0.1-1.0 K/uL Eosinophils # (Auto) 0.00 0.00-0.70 K/uL Basophils # (Auto) 0.00 0.00-0.20 K/uL Absolute Immature Granulocyte (auto 0.01 0-1 K/uL Nucleated Red Blood Cells 0.0 0.0-0.19 % White Cell Morphology Comment See comments Chemistry Labs: Test 07/26/24 07:08 07/25/24 17:23 Range/Units Sodium Level 140 136-145 mmol/L Potassium Level 3.9 3.5-5.1 mmol/L Chloride Level 105 101-111 mmol/L Carbon Dioxide Level 25 21-32 mmol/L Blood Urea Nitrogen 13 7-18 mg/dL Creatinine 1.2 0.5-1.3 mg/dL Glomerular Filtration Rate Calc 58 >90 mL/min Random Glucose 175 #H 70-105 mg/dL Total Calcium 8.6 8.5-10.1 mg/dL Magnesium Level 1.60 L 1.80-2.40 mg/dL Total Bilirubin 0.6 0.2-1.0 mg/dL Aspartate Amino Transf (AST/SGOT) 22 10-37 U/L Alanine Aminotransferase (ALT/SGPT) 22 12-78 U/L Alkaline Phosphatase 54 50-136 U/L Troponin I High Sensitivity 13 4-75 ng/L Total Protein 6.3 6.0-8.3 g/dL Albumin 2.9 L 3.5-5.0 g/dL Lactic Acid Level 1.9 0.8-2.5 mmol/L B-Type Natriuretic Peptide 251 H 0-100 pg/mL Coagulation Labs: Test 07/26/24 07:08 07/25/24 17:23 Range/Units D-Dimer Quantitative (PE/DVT) 491 0-500 ng/mL Prothrombin Time 11.0 9.6-11.6 SEC Prothromb Time International Ratio 0.98 0.85-1.15 Activated Partial Thromboplast Time 30.9 26.3-35.5 SEC DIAGNOSTICS / RADIOLOGY RESULTS: na PLAN NEURO: Minimize central acting medications as possible. Maintain fall precautions, adequate lighting during the day PULMONARY: Supplemental 02 as needed. Maintain aspiration precautions at all times CARDIOVASCULAR: Follow hemodynamics. Vital signs per facility protocol GI & NUTRITION: Continue with nutritional support. Continue stool softeners and laxatives as needed. KIDNEYS & ELECTROLYTES: Strict monitoring of intake, output and overall fluid balance. Avoid nephrotoxic medications to the extent possible. Medications to be dosed according to renal function. Monitor electrolytes and replace as needed ENDOCRINE: Maintain blood glucose between 100-180 at all times. Hypoglycemia protocol in place INFECTIOUS DISEASE: Trend temperature, WBC and procalcitonin level Follow cultures, deescalate antibiotics as soon as possible. Panculture if new onset fever ONCOLOGY/HEMATOLOGY/COAGULATION: Monitor for s/s of bleeding Monitor hemoglobin, coagulation studies as needed SKIN: Pressure ulcer prevention per facility protocol Specialty mattress ORTHO/REHAB: Continue PT/OT Prophylaxis: Continue GI and DVT prophylaxis Code Status: Full Resuscitation Disposition: TBD Other: Case discussed with supervising physician plan of care agreed upon SWATI ESTES Jul 26, 2024 17:05
[2024-07-26] MEDS: atorVAStatin 40 MG TABLET PO SCH (20:03)
[2024-07-26] MEDS: FERROUS SULFATE 325 MG TABLET.DR PO SCH (20:03)
[2024-07-26] MEDS: RIVAROXABAN 20 MG TABLET PO SCH (20:03)
[2024-07-26] MEDS: LISINOPRIL 10 MG TABLET PO SCH (20:03)
[2024-07-26] MEDS: CYANOCOBALAMIN (VITAMIN B-12) 1,000 MCG TABLET PO SCH (20:03)
--- NOTE | 2024-07-26 23:05 | EKG ---
[facility] Test Date: 2024-07-26 Test Time: 19:42:35 Pat Name: KACEY CORBIN Department: [facility] Room: 401 1 Gender: M Immunologist: DR HERNANDEZ: [id number] Requested By: CHUCKY BOWSER Order Number: [id number] Reading MD: Obie Covington Measurements Intervals [place] Rate: 78 P: 76 NM: 182 QRS: -71 QRSD: 148 T: 110 QT: 428 QTc: 487 Interpretive Statements Atrial-sensed ventricular-paced rhythm Compared to ECG 07/25/2024 17:02:59 Sinus rhythm no longer present First degree AV block no longer present Left bundle-branch block no longer present Electronically Signed On 07-27-2024 20:02:03 RECORDS MANAGEMENT COORDINATOR by Obie Covington Please click the below link to view image of tracing.
--- NOTE | 2024-07-26 23:41 | HMCSR ---
APPROVED REPORT EXAM: Two-dimensional and M-mode echocardiogram with Doppler and color Doppler. INDICATION ICD: Elevated BNP 2D Dimensions RVDd3.9 cmLVED Vol(simp.)61.8 mL LVES Vol(simp.)30.5 mL LVEF(%, simp.)51 % LA ESV INDEX (4CH)36.00 mL/m2 LA ESV INDEX (2CH)22.00 mL/m2 Deformation Strain Apical 414.0 % Apical 212.0 % Apical 318.0 % Global Igmwcj01.0 % Aortic Valve AoV VTI0.3 mAo Mean GR6.0 mmHgLVOT VTI0.19 m Mitral Valve MV E Vmax88.8 cm/sDECEL Wosc673 ms MV A Vmax72.8 cm/sP 1/2 T61 ms E/A ratio1.2MVA (PHT)3.6 cm2 TDI E/E' Lhedwz77.5E/E' Ejupwpr12.3 Medial E' Peak V6.60 cm/sLateral E' Peak V6.20 cm/s Tricuspid Valve RAP (EST) 8 mmHgRVSP8.0 mmHg Left Ventricle The left ventricle is normal in size. No regional wall motion abnormalities noted. Mild concentric le ft ventricular hypertrophy. Left ventricle systolic function is grossly normal, estimated LVEF >55%. Indeterminate diastolic function. Right Ventricle The right ventricle is normal size. The right ventricular systolic function is normal. Atria The left atrium is mildly dilated, 36 mL/m. The right atrium is dilated. Aortic Valve Aortic valve is not well-visualized. No aortic regurgitation is present. There is no aortic valvular stenosis. Mitral Valve The mitral valve is normal in structure and function. There is no mitral valve regurgitation noted. T here is no mitral valve stenosis. Tricuspid Valve Tricuspid valve is not well visualized. Pulmonic Valve Pulmonic valve is not visualized. Great Vessels The aortic root appears normal in size. IVC was not well-visualized. Pericardium No pericardial effusion. Other Information Quality : Technically difficult study due to body habitus Conclusion The left atrium is mildly dilated, 36 mL/m. The right atrium is dilated. Mild concentric left ventricular hypertrophy. No regional wall motion abnormalities noted. Left ventricle systolic function is grossly normal, estimated LVEF >55%. Indeterminate diastolic function. No obvious valvular abnormalities were seen. Right-sided pressures cannot be accurately assessed. No pericardial effusion.
[2024-07-27] VITALS (9 sets, daily range): BP systolic 112–151; BP diastolic 58–81; PULSE 66–85; RESP 16–20; TEMP 97.8–98.4; O2SAT 97–98
[2024-07-27 04:20] LABS: ABG BASE EXCESS 1.2 mmol/L (-2.0-3.0); ABG HCO3 24.1 mmol/L (21.0-28.0); ABG PCO2 33 mmHg (35-48); ABG PH 7.476 (7.350-7.450); DEVICE COMMENT RR; PO2, ARTERIAL BG 99.9 mmHg (83.0-108.0); VENT MODE, BG RA (ROOM AIR)
[2024-07-27 05:09] LABS: BASOPHILS # (AUTO) 0.01 K/uL (0.00-0.20); BASOPHILS % (AUTO) 0.1 % (0.0-5.0); HEMATOCRIT 35.1 % (42-54); IMMATURE GRANULOCYTE ABSOLUTE 0.07 K/uL (0-1); LYMPHOCYTES # (AUTO) 0.8 K/uL (1.0-4.8); LYMPHOCYTES % (AUTO) 7.2 % (21.0-51.0); MEAN CORPUSCULAR HEMOGLOBIN 28.8 pg (27.0-33.0); MEAN CORPUSCULAR HGB CONC 33.6 g/dL (32.0-36.0); MEAN CORPUSCULAR VOLUME 85.6 fL (79-99); MONOCYTES # (AUTO) 0.7 K/uL (0.1-1.0); MONOCYTES % (AUTO) 5.6 % (3.0-13.0); NEUTROPHILS % (AUTO) 86.5 % (40.0-77.0); PLATELET COUNT (AUTO) 387 K/uL (130-400); RED CELL DISTRIBUTION WIDTH 13.1 % (11.0-15.5); WHITE BLOOD COUNT (AUTO) 11.6 K/uL (4.8-10.8)
[2024-07-27 05:29] LABS: ALBUMIN 2.7 g/dL (3.5-5.0); BILIRUBIN,TOTAL 0.6 mg/dL (0.2-1.0); CREATININE 1.3 mg/dL (0.5-1.3); POTASSIUM 3.4 mmol/L (3.5-5.1); TOTAL PROTEIN, SERUM 5.8 g/dL (6.0-8.3)
[2024-07-27] MEDS: PoTASSium chloRIDE 20MEQ ER 20 MEQ ERTAB PO PRN (05:37)
[2024-07-27] MEDS: acetaMINOPHEN 325 MG TAB PO PRN (08:34)
[2024-07-27] MEDS: guaiFENesin-DM 200/20MG 10ML PO PRN (08:34)
[2024-07-27] MEDS ORDERED: metOPROLol sucCINATE 50 MG TAB.SR.24H PO SCH (09:00)
[2024-07-27] MEDS: metOPROLol sucCINATE 50 MG TAB.SR.24H PO SCH (10:44)
--- NOTE | 2024-07-27 13:28 | CONS ---
[facility] Consultation Note Date/Time of Consultation: [ 07/27/2024, approximately 11:00 a.m.] CHIEF COMPLAINT: [Atrial fibrillation with RVR after interruption of his home beta-maria luisa ] SOURCE: The medical record and the spring internship OUTPATIENT MINERAL INDUSTRY TEACHER: [ Dr. Kwong] OUTPATIENT PRIMARY MD: [ Dr. Amaury Benson] HPI: [Patient is an 89-year-old male with a history of hypertension, dyslipidemia, type 2 diabetes, conduction system disease with PPM, and known paroxysmal atrial fibrillation/flutter maintained on Xarelto who was admitted two days ago for COVID-19. He was diagnosed and completed outpatient treatment of COVID-19 about two weeks ago but had persistent symptoms, including cough that provoked chest pain, so presented to the ER. Vitals were stable. COVID swabs were positive. Troponin was negative x2, BNP in the 200s, white count 11.6. Chest x-ray did not show any acute congestive changes. Sangeetha Holbrook, the admitting HOTEL SUPERINTENDENT, consulted pulmonology, ordered DuoNebs, and started his vitamin B12, ferrous sulfate, and atorvastatin, but NOT his Xarelto or home dose of metoprolol. Not surprisingly, he developed atrial fibrillation with RVR last night. This morning he is in a paced rhythm. The spring internship, Dr. Bowser, resumed his metoprolol and Xarelto, and placed a cardiology consult for AFib RVR. Patient is followed by Dr. Kwong, who last saw him February 16, 2024. He has a known history of paroxysmal atrial fibrillation/atrial flutter/PAT with AV block. He has had episodes of NSVT also. He had a Guidant pacemaker placed in 2002 with a Biotronik E Amara dual-chamber generator replacement in May 18, 2020. His most recent echo in 2018 showed EF of 55%. Nuclear scan in 2019 did not show any ischemia. Has a history of orthostatic hypotension also. He is maintained on Xarelto 20 mg and metoprolol succinate 200 mg daily] REVIEW OF SYSTEMS: No reports of bleeding. No fever. PAST MEDICAL HISTORY: [Paroxysmal atrial fibrillation/flutter/PAT Chronic Xarelto anticoagulation 2018 echo, EF 55% Normal 2018 Lexiscan Conduction system disease with Biotronik E Amara dual-chamber generator replacement in 2019 Hypertension Dyslipidemia Orthostatic hypotension Type 2 diabetes YENY ] PAST SURGICAL HISTORY: [Guidant pacemaker placed 2002, Biotronik E Amara generator change out April 30] FAMILY HISTORY: [ No family history of CAD.] SOCIAL HISTORY: [Quit smoking four decades ago. No history of alcohol abuse ] Coded Allergies: Erythromycin Base (Unverified Allergy, 11/05/12) Levofloxacin (Unverified Allergy, 11/05/12) Active Scripts Guaifenesin/Dextromethorphan (Robitussin Cough-Chest Dm Liq) 100 Mg-5 Mg/5 Ml Liquid, 10 ML PO Q8H for Cough for 7 Days, #210 ML 0 Refills Prov:CHUCKY BOWSER MD 07/27/24 Acetaminophen with Codeine (Acetaminophen-Cod #3 Tablet) 1 Each Tablet, 1 EACH PO TID for pain, #15 TAB 0 Refills Prov:NICK DICK MD 05/09/21 Reported Medications Atorvastatin Calcium (LIPITOR) 40 Mg Tablet, 40 MG PO HS, TAB 05/22/20 Metoprolol Succinate (Metoprolol Succinate) 200 Mg Tab.er.24h, 200 MG PO DAILY, TAB 05/22/20 Lisinopril (Lisinopril) 10 Mg Tablet, 10 MG PO BID, TAB 05/22/20 Dutasteride (Dutasteride) 0.5 Mg Capsule, 0.5 MG PO DAILY, CAP 05/22/20 Ferrous Sulfate (Iron) 325 Mg Tablet, 325 MG PO HS, TAB 05/22/20 Cyanocobalamin (Vitamin B-12) 500 Mcg Tab, 500 MCG PO HS, TAB 05/22/20 Rivaroxaban (Xarelto) 20 Mg Tablet, 20 MG PO HS, TAB 05/22/20 PHYSICAL EXAMINATION: Deferred due to COVID-19 precautions Vital Signs (last 8hr) Date Time Temp Pulse Resp B/P (MAP) Pulse Ox O2 Delivery O2 Flow Rate FiO2 07/27/24 12:00 97.9 70 18 131/69 97 07/27/24 10:50 78 20 07/27/24 08:00 97.9 82 18 151/81 97 Room Air 07/27/24 06:26 78 18 N/A Room Air 21 07/27/24 06:25 78 20 Hematology Labs: Test 07/27/24 04:46 07/26/24 07:08 Range/Units White Blood Count 11.6 #H 4.8-10.8 K/uL Red Blood Count 4.10 L 4.50-6.20 MIL/uL Hemoglobin 11.8 L 14.0-18.0 g/dL Hematocrit 35.1 L 42-54 % Mean Corpuscular Volume 85.6 79-99 fL Mean Corpuscular Hemoglobin 28.8 27.0-33.0 pg Mean Corpuscular Hemoglobin Concent 33.6 32.0-36.0 g/dL Red Cell Distribution Width 13.1 11.0-15.5 % Platelet Count 387 130-400 K/uL Mean Platelet Volume 8.7 7.5-10.5 fL Immature Granulocyte % (Auto) 0.6 0-1 % Neutrophils (%) (Auto) 86.5 H 40.0-77.0 % Lymphocytes (%) (Auto) 7.2 L 21.0-51.0 % Monocytes (%) (Auto) 5.6 3.0-13.0 % Eosinophils (%) (Auto) 0.0 0.0-8.0 % Basophils (%) (Auto) 0.1 0.0-5.0 % Neutrophils # (Auto) 10.0 H 1.8-7.7 K/uL Lymphocytes # (Auto) 0.8 L 1.0-4.8 K/uL Monocytes # (Auto) 0.7 0.1-1.0 K/uL Eosinophils # (Auto) 0.00 0.00-0.70 K/uL Basophils # (Auto) 0.01 0.00-0.20 K/uL Absolute Immature Granulocyte (auto 0.07 0-1 K/uL Nucleated Red Blood Cells 0.0 0.0-0.19 % White Cell Morphology Comment See comments Chemistry Labs: Test 07/27/24 04:46 07/26/24 07:08 07/25/24 17:23 Range/Units Sodium Level 138 136-145 mmol/L Potassium Level 3.4 L 3.5-5.1 mmol/L Chloride Level 102 101-111 mmol/L Carbon Dioxide Level 27 21-32 mmol/L Blood Urea Nitrogen 14 7-18 mg/dL Creatinine 1.3 0.5-1.3 mg/dL Glomerular Filtration Rate Calc 53 >90 mL/min Random Glucose 139 H 70-105 mg/dL Total Calcium 8.4 L 8.5-10.1 mg/dL Total Bilirubin 0.6 0.2-1.0 mg/dL Aspartate Amino Transf (AST/SGOT) 26 10-37 U/L Alanine Aminotransferase (ALT/SGPT) 19 12-78 U/L Alkaline Phosphatase 44 L 50-136 U/L Total Protein 5.8 L 6.0-8.3 g/dL Albumin 2.7 L 3.5-5.0 g/dL Magnesium Level 1.60 L 1.80-2.40 mg/dL Troponin I High Sensitivity 13 4-75 ng/L Lactic Acid Level 1.9 0.8-2.5 mmol/L B-Type Natriuretic Peptide 251 H 0-100 pg/mL Coagulation Labs: Test 07/26/24 07:08 07/25/24 17:23 Range/Units D-Dimer Quantitative (PE/DVT) 491 0-500 ng/mL Prothrombin Time 11.0 9.6-11.6 SEC Prothromb Time International Ratio 0.98 0.85-1.15 Activated Partial Thromboplast Time 30.9 26.3-35.5 SEC Current Medications Medications (Trade) Dose Ordered Sig/Chase Route Start Time Stop Time Status Last Admin Dose Admin Albuterol (DUOneb) 1 udvial [id number] IH 07/25/24 22:00 07/27/24 11:49 DC 07/27/24 10:50 1 UDVIAL Aspirin (Aspirin 81mg Ec Tab) 81 mg DAILY PO 07/26/24 09:00 08/25/24 08:59 07/27/24 08:33 81 MG Atorvastatin Calcium (LIPItor 40MG) 40 mg HS PO 07/26/24 21:00 08/25/24 20:59 07/26/24 20:03 40 MG Dexamethasone Sodium Phosphate (dexaMETHasone 4MG/ML 1ML VIAL) 6 mg Q24H IV 07/25/24 20:00 07/26/24 17:06 DC 07/25/24 19:59 6 MG Famotidine (Pepcid 20mg Tab) 20 mg DAILY PO 07/26/24 09:00 08/25/24 08:59 07/27/24 08:32 20 MG Ferrous Sulfate (Ferrous Sulfate) 325 mg HS PO 07/26/24 21:00 08/25/24 20:59 07/26/24 20:03 325 MG Home Med (Home Medication) DAILY PO 07/26/24 09:00 08/25/24 08:59 Lisinopril (Prinivil 10mg) 10 mg BID PO 07/26/24 21:00 08/25/24 20:59 07/27/24 08:32 10 MG Metoprolol Succinate (TopROL XL) 100 mg BID PO 07/27/24 10:00 08/26/24 09:59 07/27/24 10:44 100 MG Metoprolol Succinate (TopROL XL) 200 mg DAILY PO 07/27/24 09:00 07/26/24 21:36 DC Rivaroxaban (Xarelto) 20 mg HS PO 07/26/24 21:00 08/25/24 20:59 07/26/24 20:03 20 MG Sodium Chloride 1,000 ml @ 75 mls/hr [id number] IV 07/25/24 20:00 08/24/24 19:59 07/26/24 09:29 75 MLS/HR Vitamin B Complex (Vitamin B-12) 500 mcg HS PO 07/26/24 21:00 08/25/24 20:59 07/26/24 20:03 500 MCG EKG: [ ] Initial 12 lead is unavailable. I do not see any rhythm strips demonstrating AFib/RVR, only paced rhythm RADIOLOGY: [ Echo was ordered, preserved EF] ASSESSMENT: Paroxysmal atrial fibrillation/flutter with RVR, iatrogenic Chronic Xarelto anticoagulation COVID-19 2D echo this admission, EF greater than 55% 2019 echo, EF 55% Normal 2019 Lexiscan Conduction system disease with Biotronik E Amara dual-chamber generator replacement in 2019 Hypertension Dyslipidemia Orthostatic hypotension Type 2 diabetes YENY PLAN: [ Patient with known and well controlled paroxysmal atrial fibrillation/flutter admitted with continued COVID-19 symptoms after completing outpatient treatment two weeks ago. When patient was admitted patient's Xarelto and metoprolol were not continued and likely has a source of rapid ventricular response occurring. We have since re-initiated Xarelto and beta blockade and patient should improve rate control and we will have benefits of cardioembolic protection with anticoagulation continued. Do not see any need at this time for any further workup from a cardiac standpoint and would mainly reinitiate medications and please call with any questions or problems. Patient should keep regular follow up appointment with his primary chef de cuisine Dr. Kwong. ALDO ROBBINS Jul 27, 2024 13:28 ALEXX HERNANDEZ MD Jul 27, 2024 20:06
[2024-07-27] MEDS ORDERED: GUAI237L82 PO (14:26)
--- NOTE | 2024-07-27 15:21 | NUR ---
Discharge Patient been discharge home, all discharge instructions given to patient, all questions answered, no concerns at this time, pending his transportation to pick him up.
--- NOTE | 2024-07-27 17:40 | DS ---
Discharge Summary Assessment/Plan: ASSESSMENT: COVID virus infection POA Failed outpatient treatment POA Dehydration POA Hypertension POA Cardiac pacemaker status POA Chest pain Hypokalemia POA Thrombocytosis POA Elevated BNP POA Acute on chronic renal insufficiency POA PLAN: patient in medical telemetry Continue on heart healthy diet aspirin 81 mg p.o. daily continue dexamethasone 6 mg IV daily Famotidine 20 mg p.o. daily for GI prophylaxis We will replace electrolytes as needed per protocol May use oxygen supplementation to keep saturation above 92% We will do neb treatment q.4 hours We will add prn medication for fever,pain,cough, nausea and vomiting Home meds reconciled We will seek pulmonology consultation We will request labs in am Further orders to follow depending on above results Home Medications: Active Scripts Guaifenesin/Dextromethorphan (Robitussin Cough-Chest Dm Liq) 100 Mg-5 Mg/5 Ml Liquid, 10 ML PO Q8H for Cough for 7 Days, #210 ML 0 Refills Prov:CHUCKY BOWSER MD 07/27/24 Acetaminophen with Codeine (Acetaminophen-Cod #3 Tablet) 1 Each Tablet, 1 EACH PO TID for pain, #15 TAB 0 Refills Prov:NICK DICK MD 05/09/21 Reported Medications Atorvastatin Calcium (LIPITOR) 40 Mg Tablet, 40 MG PO HS, TAB 05/22/20 Metoprolol Succinate (Metoprolol Succinate) 200 Mg Tab.er.24h, 200 MG PO DAILY, TAB 05/22/20 Lisinopril (Lisinopril) 10 Mg Tablet, 10 MG PO BID, TAB 05/22/20 Dutasteride (Dutasteride) 0.5 Mg Capsule, 0.5 MG PO DAILY, CAP 05/22/20 Ferrous Sulfate (Iron) 325 Mg Tablet, 325 MG PO HS, TAB 05/22/20 Cyanocobalamin (Vitamin B-12) 500 Mcg Tab, 500 MCG PO HS, TAB 05/22/20 Rivaroxaban (Xarelto) 20 Mg Tablet, 20 MG PO HS, TAB 05/22/20 New Medications: Guaifenesin/Dextromethorphan (Robitussin Cough-Chest Dm Liq) 100 Mg-5 Mg/5 Ml Liquid 10 ML PO Q8H for Cough for 7 Days, #210 ML 0 Refills Continued Medications: Acetaminophen with Codeine (Acetaminophen-Cod #3 Tablet) 1 Each Tablet 1 EACH PO TID for pain, #15 TAB 0 Refills Atorvastatin Calcium (Lipitor) 40 Mg Tablet 40 MG PO HS, TAB Cyanocobalamin (Vitamin B-12) 500 Mcg Tab 500 MCG PO HS, TAB Dutasteride (Dutasteride) 0.5 Mg Capsule 0.5 MG PO DAILY, CAP Ferrous Sulfate (Iron) 325 Mg Tablet 325 MG PO HS, TAB Lisinopril (Lisinopril) 10 Mg Tablet 10 MG PO BID, TAB Metoprolol Succinate (Metoprolol Succinate) 200 Mg Tab.er.24h 200 MG PO DAILY, TAB Rivaroxaban (Xarelto) 20 Mg Tablet 20 MG PO HS, TAB CHUCKY BOWSER MD Jul 27, 2024 17:40
== END 2024-07-27 15:55 | disposition home or self-care (01) | DRG 178 ==
LOC: EDH 16:55 → EDHIP 18:48 → 4AH 07-26 17:09
PROVIDERS: ADMIT Internal Medicine; ATTEND Internal Medicine
DX: U07.1 COVID-19 (principal); E87.1 Hypo-osmolality and hyponatremia; E86.0 Dehydration; E87.6 Hypokalemia; E87.8 Other disorders of electrolyte and fluid balance, not elsewhere classified; N18.9 Chronic kidney disease, unspecified; I12.9 Hypertensive chronic kidney disease with stage 1 through stage 4 chronic kidney disease, or unspecified chronic kidney disease; D75.839 Thrombocytosis, unspecified; E11.22 Type 2 diabetes mellitus with diabetic chronic kidney disease; E78.5 Hyperlipidemia, unspecified; I48.0 Paroxysmal atrial fibrillation; I95.1 Orthostatic hypotension; N40.0 Benign prostatic hyperplasia without lower urinary tract symptoms; I45.9 Conduction disorder, unspecified; G47.33 Obstructive sleep apnea (adult) (pediatric); Z95.0 Presence of cardiac pacemaker; Z79.01 Long term (current) use of anticoagulants; Z79.899 Other long term (current) drug therapy; Z82.3 Family history of stroke; Z82.49 Family history of ischemic heart disease and other diseases of the circulatory system; Z88.1 Allergy status to other antibiotic agents
CPT/HCPCS: 36415; 36600; 71045; 80048; 80053; 81003; 82803; 83605; 83735; 83880; 84484; 85025; 85378; 85610; 85730; 87040; 87426; 87804; 93005; 93306; 93356; 94640; 94664; G0378; J1100; J3475

== ENCOUNTER → 2024-08-29 | Outpatient (CLI) | payer MEDICARE ==
[~2024-08-29] MED LIST changes: +GUAI237L82 PO
[2024-08-29 12:32] LABS: CREATININE 1.4 mg/dL (0.5-1.3); MAGNESIUM 2.3 mg/dL (1.80-2.40)
== END | disposition home or self-care (01) ==
LOC: LAB 11:04
PROVIDERS: ATTEND Internal Medicine Cardiovascular Disease
DX: I10 Essential (primary) hypertension (principal); E78.2 Mixed hyperlipidemia; I48.0 Paroxysmal atrial fibrillation; D68.69 Other thrombophilia
CPT/HCPCS: 36415; 80048; 83735; 83880

== ENCOUNTER → 2024-08-30 | Outpatient (CLI) | payer MEDICARE ==
--- NOTE | 2024-09-05 22:43 | HMCSR ---
APPROVED REPORT INDICATION Paroxysmal Atrial Fibrillation PROCEDURE The patient was injected with 12.5 mg of cold stannous pyrophosphate. After 20-30 minutes the patien t was injected with 24.5 mCi of Technetium-99m Pertechnate. Findings Image quality is . Impressions End diastole was not correctly identified, but corrected EF is 48%, mildly depressed.
== END | disposition home or self-care (01) ==
LOC: SHCH 12:56
PROVIDERS: ATTEND Internal Medicine Cardiovascular Disease
DX: I48.0 Paroxysmal atrial fibrillation (principal)
CPT/HCPCS: 78481; A9512